=== PATIENT | male | born 1965 | race African-American/Black ===

== ENCOUNTER 2018-10-04 14:55 | Inpatient (IN) | payer MEDICARE, OTHER ==
[~2018-10-04] VITALS: Ht 182.9 cm; Wt 127.0 kg
[2018-10-04] MEDS ORDERED: PANTOPRAZOLE IV 80 MG in SOD CHLORIDE 0.9% 100 ML IV STA (15:48)
[2018-10-04] MEDS ORDERED: SOD CHLORIDE 0.9% 1,000 ML IV STA (15:48)
[2018-10-04] MEDS ORDERED: PANTOPRAZOLE IV 80 MG in SOD CHLORIDE 0.9% 100 ML IVPB STA (15:48)
--- NOTE | 2018-10-04 16:03 | ERD ---
ER Documentation Chief Complaint Chief Complaint Abd, nausea and black stool x 3 days HPI This is a 53-year-old male who is here for epigastric burning pain over the past 3 days. He says that today he started having black diarrhea so I called his primary care who told him to go to the ER. The patient denies any history of ulcer disease, gastritis or esophagitis. His gallbladder is removed. The pain does not radiate but stays mostly in the upper abdomen. No pain in the back. No chest pain or difficulty breathing. ROS All systems reviewed and are negative except as per history of present illness. Medications Home Meds Reported Medications Lisinopril* (Lisinopril*) 40 Mg Tablet, 40 MG PO DAILY, #30 TAB 10/04/18 Tamsulosin Hcl* (Flomax*) 0.4 Mg Cap.er.24h, 0.4 MG PO DAILY, CAP 10/04/18 Hydralazine Hcl* (Hydralazine Hcl*) 50 Mg Tab, 50 MG PO TID, #90 TAB 10/04/18 Allergies Allergies: Coded Allergies: ketorolac (Verified Allergy, Mild, 10/04/18) tramadol (Verified Allergy, Mild, 10/04/18) FmHx Family History: No coronary disease Physical Exam Vitals Vital Signs Date Temp Pulse Resp B/P (MAP) Pulse Ox O2 O2 Flow FiO2 Time Delivery Rate 10/04/18 66 170/106 18:08 (127) 10/04/18 75 19 187/108 98 Room Air 17:51 (134) 10/04/18 98.2 72 19 204/111 97 14:58 (142) Physical Exam Const: Well-developed, well-nourished Head: Atraumatic, normocephalic Eyes: Normal Conjunctiva, PERRLA, EOMI, normal sclera, no nystagmus ENT: Normal External Ears, Nose and Mouth, moist mucus membranes. Neck: Full range of motion. No meningismus, no lymphadenopathy. Resp: Clear to auscultation bilaterally, no wheezing, rhonchi, rales Cardio: Regular rate and rhythm, no murmurs, S1 S2 present Abd: Soft, moderate epigastric tenderness, non distended. Normal bowel sounds, no guarding or rebound, no pulsitile abdominal masses or bruits Skin: No petechiae or rashes, no ecchymosis , no maculopapular rash Back: No midline or flank tenderness Ext: No cyanosis, or edema, FROM x 4, normal inspection, neurovascularly intact x 4 Neur: Awake and alert, STR 5/5 x 4, sensation intact x 4, no focal findings, cerebellum intact Psych: Normal Mood and Affect Result Diagram: 10/04/18 1540 10/04/18 1540 Results 24 hrs Laboratory Tests Test 10/04/18 15:40 White Blood Count 6.5 10^3/ul Red Blood Count 4.28 10^6/ul Hemoglobin 11.1 g/dl Hematocrit 34.5 % Mean Corpuscular Volume 80.6 fl Mean Corpuscular Hemoglobin 25.9 pg Mean Corpuscular Hemoglobin Concent 32.2 g/dl Red Cell Distribution Width 15.4 % Platelet Count 155 10^3/UL Mean Platelet Volume 11.8 fl Immature Granulocytes % 0.500 % Neutrophils % 67.7 % Lymphocytes % 20.5 % Monocytes % 8.2 % Eosinophils % 2.8 % Basophils % 0.3 % Nucleated Red Blood Cells % 0.0 /100WBC Immature Granulocytes # 0.030 10^3/ul Neutrophils # 4.4 10^3/ul Lymphocytes # 1.3 10^3/ul Monocytes # 0.5 10^3/ul Eosinophils # 0.2 10^3/ul Basophils # 0.0 10^3/ul Nucleated Red Blood Cells # 0.0 10^3/ul Prothrombin Time 12.3 Sec Prothrombin Time Ratio 1.0 INR International Normalized Ratio 0.90 Activated Partial Thromboplast Time 27.5 Sec Sodium Level 143 mmol/L Potassium Level 4.1 mmol/L Chloride Level 112 mmol/L Carbon Dioxide Level 25 mmol/L Anion Gap 6 Blood Urea Nitrogen 18 mg/dl Creatinine 2.27 mg/dl Est Glomerular Filtrat Rate mL/min 37 mL/min Glucose Level 88 mg/dl Calcium Level 9.1 mg/dl Total Bilirubin 0.2 mg/dl Direct Bilirubin 0.00 mg/dl Indirect Bilirubin 0.2 mg/dl Aspartate Amino Transf (AST/SGOT) 22 IU/L Alanine Aminotransferase (ALT/SGPT) 13 IU/L Alkaline Phosphatase 108 IU/L Total Protein 7.6 g/dl Albumin 3.8 g/dl Globulin 3.80 g/dl Albumin/Globulin Ratio 1.00 Current Medications Medications Dose Sig/Leatha Start Time Status Last (Trade) Ordered Route PRN Stop Time Admin Dose Reason Admin Sodium 1,000 ml @ Q1H STAT 10/04/18 DC 10/04/18 Chloride 1,000 mls/hr IV 15:48 16:17 10/04/18 16:47 Pantoprazole 100 ml @ ONCE STAT 10/04/18 DC 10/04/18 80 mg/Sodium 400 mls/hr IVPB 15:48 16:18 Chloride 10/04/18 16:02 Pantoprazole 100 ml @ ONCE STAT 10/04/18 10/04/18 80 mg/Sodium 10 mls/hr IV 15:48 16:40 Chloride 10/05/18 01:47 1 mg ONCE STAT 10/04/18 DC 10/04/18 Hydromorphone IV 16:23 16:29 HCl 10/04/18 16:24 (Dilaudid) Ondansetron 4 mg ONCE STAT 10/04/18 DC 10/04/18 HCl (Zofran IV 16:23 16:29 Inj) 10/04/18 16:24 1 mg ONCE STAT 10/04/18 DC 10/04/18 Hydromorphone IV 17:53 18:00 HCl 10/04/18 17:54 (Dilaudid) Ondansetron 4 mg ONCE STAT 10/04/18 DC 10/04/18 HCl (Zofran IV 17:53 17:59 Inj) 10/04/18 17:54 Procedures/MDM The patient's hemoglobin is stable at 11.1. Does have an elevated creatinine of 2.27 we do not know his baseline. Patient is having some significant epigastric pain with multiple rounds of black diarrhea. I will consult GI for endoscopy and colonoscopy. Will admit to the hospital. He is on Protonix IV bolus and drip Departure Diagnosis: Primary Impression: Upper GI bleed Condition: Stable SHANNAN TRENT DO Oct 04, 2018 16:03
[2018-10-04] MEDS ORDERED: TAMS-14 PO (16:19)
[2018-10-04] MEDS ORDERED: HYDR-3672 PO (16:19)
[2018-10-04] MEDS ORDERED: LISI40TA3 PO (16:20)
[2018-10-04] MEDS ORDERED: ONDANSETRON 4 MG INJ IV STA ×2 (16:23→17:53)
[2018-10-04] MEDS ORDERED: HYDROmorphONE 1 MG/ML SYG IV STA ×2 (16:23→17:53)
[2018-10-04] MEDS ORDERED: SOD CHLORIDE 0.9% 1,000 ML IV SCH (19:44)
[2018-10-04] MEDS ORDERED: ACETAMINOPHEN 325 MG TAB PO PRN ×2 (20:00)
[2018-10-04] MEDS ORDERED: NACL 0.9% 3 ML SYG IV SCH (20:00)
[2018-10-04] MEDS ORDERED: morphine 2 MG INJ IV PRN (20:00)
[2018-10-04] MEDS ORDERED: ONDANSETRON 4 MG INJ IV PRN ×2 (20:00)
[2018-10-04] MEDS ORDERED: METOCLOPRAMIDE 10 MG INJ IV PRN (20:00)
--- NOTE | 2018-10-04 20:02 | HP ---
Date/Time of Note Date/Time of Note DATE: 10/04/18 TIME: 20:02 Assessment/Plan VTE Prophylaxis SCD applied (from Nsg): Yes Pharmacological prophylaxis: NA/contraindicated Pharm contraindication: low risk/ambulating Lines/Catheters IV Catheter Type (from Nrsg): Saline Lock Assessment/Plan Hospital Course This is a 53-year-old male being admitted to the [facility] floor for: #1 GI bleed: Suspect upper GI bleed given patient's epigastric pain. Likely peptic ulcer disease. Will obtain a stool occult blood. Will check CBC every 6 hours. Protonix drip. We will keep the patient n.p.o. except meds at the current time. IV fluid hydration with normal saline. Dilaudid for pain. GI has been consulted #2 acute kidney injury: Unknown previous baseline creatinine. This likely could be secondary to hemodynamics, hypertension, NETTA inhibitor effect. At the current time will hold NETTA inhibitor. Will obtain a renal ultrasound. Will avoid any nephrotoxic agents or any NSAIDs. Will consult nephrology Dr. Alcazar Microscopic UA, urinalysis #3 obesity: We will check a hemoglobin A1c, lipid panel, TSH, encourage diet and lifestyle modification #4 normocytic anemia: We will check iron stores, please see #1. #5 DVT GI prophylaxis: SCDs, Protonix IV Further treatment strategy will be implemented as per the clinical course Result Diagram: 10/04/18 1540 10/04/18 1540 Results 24hrs Laboratory Tests Test 10/04/18 15:40 White Blood Count 6.5 Red Blood Count 4.28 L Hemoglobin 11.1 L Hematocrit 34.5 L Mean Corpuscular Volume 80.6 L Mean Corpuscular Hemoglobin 25.9 L Mean Corpuscular Hemoglobin Concent 32.2 Red Cell Distribution Width 15.4 H Platelet Count 155 Mean Platelet Volume 11.8 H Immature Granulocytes % 0.500 H Neutrophils % 67.7 Lymphocytes % 20.5 Monocytes % 8.2 Eosinophils % 2.8 Basophils % 0.3 Nucleated Red Blood Cells % 0.0 Immature Granulocytes # 0.030 Neutrophils # 4.4 Lymphocytes # 1.3 Monocytes # 0.5 Eosinophils # 0.2 Basophils # 0.0 Nucleated Red Blood Cells # 0.0 Prothrombin Time 12.3 Prothrombin Time Ratio 1.0 INR International Normalized Ratio 0.90 Activated Partial Thromboplast Time 27.5 Sodium Level 143 Potassium Level 4.1 Chloride Level 112 H Carbon Dioxide Level 25 Anion Gap 6 Blood Urea Nitrogen 18 Creatinine 2.27 H Est Glomerular Filtrat Rate mL/min 37 L Glucose Level 88 Calcium Level 9.1 Total Bilirubin 0.2 Direct Bilirubin 0.00 Indirect Bilirubin 0.2 Aspartate Amino Transf (AST/SGOT) 22 Alanine Aminotransferase (ALT/SGPT) 13 Alkaline Phosphatase 108 Total Protein 7.6 Albumin 3.8 Globulin 3.80 H Albumin/Globulin Ratio 1.00 HPI/ROS Admit Date/Time Admit Date/Time Hx of Present Illness Chief complaint: Epigastric pain, dark stools This is a 53-year-old male who is here for epigastric burning pain over the past 3 days. He says that today he started having black diarrhea so I called his primary care who told him to go to the ER. The patient denies any history of ulcer disease, gastritis or esophagitis. His gallbladder is removed. The pain does not radiate but stays mostly in the upper abdomen. He reports that he has had approximately 5 dark bowel today. He denies any chest pain or shortness of breath. Allergies:Tramadol, Toradol Medications: See AUG ROS Const: As per HPI Eyes : No pain discharge or redness or change in visual acuity ENT: No pain, sore throat, congestion, congestion, dysphagia or discharge Respiratory: No shortness of breath, cough, sputum, wheezing, or pleuritic pain Cardiovascular: No chest pain, palpitation, PND, or edema GI : As per HPI Genitourinary: No dysuria, hematuria, flank pain , discharge or CVA tenderness Musculoskeletal: No joint pain, back pain, neck pain, restricted range of motion in neck or joints Skin: No rash, bruising or hives Neuro: No headache, dizziness, syncope, seizure, focal weakness Endocrine: No polyuria, polydipsia, temperature intolerance Psych: No hallucination, depression, anxiety or suicidal ideation PMH/Family/Social Past Medical History Hypertension, BPH Medications Current Medications Pantoprazole 80 mg/Sodium Chloride 100 ml @ 10 mls/hr ONCE STAT IV Last administered on 10/04/18at 16:40; Admin Dose 10 MLS/HR; Start 10/04/18 at 15:48; Stop 10/05/18 at 01:47 Sodium Chloride 1,000 ml @ 80 mls/hr [id number] IV ; Start 10/04/18 at 19:44; Stop 10/05/18 at 08:13 Ondansetron HCl (Zofran Inj) 4 mg BRIDGE ORDER PRN IV NAUSEA/VOMITING; Start 10/04/18 at 20:00; Stop 10/05/18 at 19:59 Acetaminophen (Tylenol Tab) 650 mg ER BRIDGE PRN PO .MILD PAIN 1-3 OR TEMP; Start 10/04/18 at 20:00; Stop 10/05/18 at 19:59 Coded Allergies: ketorolac (Verified Allergy, Mild, 10/04/18) tramadol (Verified Allergy, Mild, 10/04/18) Past Surgical History TURP, cholecystectomy Family History Significant Family History: no pertinent family hx Social History Alcohol Use: none Smoking Status: Never smoker Drug Use: none Exam/Review of Systems Vital Signs Vitals Vital Signs Date Temp Pulse Resp B/P (MAP) Pulse Ox O2 O2 Flow FiO2 Time Delivery Rate 10/04/18 66 170/106 18:08 (127) 10/04/18 98 Room Air 17:51 10/04/18 98.2 14:58 Exam Exam General: Patient is a pleasant male currently lying in bed in no acute distress HEENT: Atraumatic, normocephalic. The pupils are equal, round and reactive. Extraocular motor are intact Neck: Supple with full range of motion. No rigidity or meningismus Chest: Nontender Lungs: Clear to auscultation bilaterally no crackles rales or wheezing Heart: Normal S1-S2, Regular rhythm and rate. No murmur, S3, or S4 Abdomen: Obese, soft , epigastric tenderness to palpation, nondistended , bowel sounds are present. No guarding no rebound tenderness , No masses or organomeg janelle. No costovertebral temporal angle mass Extremities: Normal to inspection, no edema no cyanosis Neurologic: Normal mental status, speech normal, cranial nerves II through XII are intact, motor and sensory are intact, no focal weakness Additional Comments PROCEDURE: XR Chest. CLINICAL INDICATION: Chest pain TECHNIQUE: Single portable view of the chest was obtained COMPARISON: None FINDINGS: The heart is enlarged. The lungs are clear. There is no pleural effusion or pneumothorax. RPTAT: AA IMPRESSION: Mild Cardiomegaly. .Carlos Dover MD, MD Date Time Electronically viewed and signed by .Carlos Dover MD, MD on 10/04/2018 20:52 .S/ CC: SANDY COLLAZO [phone] SANDY COLLAZO Oct 04, 2018 20:02
[2018-10-04] MEDS: SOD CHLORIDE 0.9% 1,000 ML IV SCH (20:27)
[2018-10-04] MEDS ORDERED: hydrALAzine 20 MG INJ ONE (20:48)
[2018-10-04] MEDS ORDERED: hydrALAzine 20 MG INJ IV ONE (21:00)
[2018-10-04] MEDS ORDERED: LISINOPRIL 20 MG TAB PO SCH (21:00)
[2018-10-04 21:32] VITALS: Ht 182.9 cm; Wt 127.0 kg
[2018-10-04 21:50] VITALS: BP 182/95; PULSE 72; RESP 18
[2018-10-04] MEDS: AMLODIPINE 5 MG TAB PO SCH (23:09)
[2018-10-04] MEDS: HYDROmorphONE 1 MG/ML SYG IV PRN (23:11)
[2018-10-05] VITALS (21 sets, daily range): BP systolic 164–203; BP diastolic 85–105; PULSE 60–92; RESP 12–39
[2018-10-05] MEDS: PANTOPRAZOLE IV 80 MG in SOD CHLORIDE 0.9% 100 ML IV SCH ×2 (03:12→13:07)
[2018-10-05] MEDS: HYDROmorphONE 1 MG/ML SYG IV PRN ×5 (03:13→22:06)
[2018-10-05] MEDS: SOD CHLORIDE 0.9% 1,000 ML IV SCH ×2 (09:24→22:39)
[2018-10-05] MEDS: AMLODIPINE 5 MG TAB PO SCH (09:24)
[2018-10-05] MEDS: hydrALAzine 20 MG INJ IV PRN ×2 (12:17→17:51)
--- NOTE | 2018-10-05 13:21 | PN ---
Date/Time of Note Date/Time of Note DATE: 10/05/18 TIME: 13:19 Assessment/Plan VTE Prophylaxis Risk score (from Ns)>0 risk: 2 SCD applied (from Ns): Yes Pharmacological prophylaxis: NA/contraindicated Pharm contraindication: bleeding Lines/Catheters IV C[facility]ter Type (from [facility]): Peripheral IV Urinary Cath still in place: No Assessment/Plan Hospital Course SUBJECTIVE: According to nursing staff, patient was found screaming, staring at the roof,with elevated blood pressure. OBJECTIVE: Vital signs-see below PHYSICAL EXAM: Constitutional: Well-developed, well-nourished not in acute distress. HEENT: Head atraumatic and normocephalic. Eyes: Extraocular muscles intact. Anicteric sclerae. Pupils equal bilaterally, reactive to light. NECK: Supple without lymph node. CHEST: Clear and good breath sounds equally. No wheezing. No rhonchi. HEART: S1, S2. Regular rate and rhythm. ABDOMEN: mild tenderness epigastric area. Soft with no rebound tenderness. Bowel sounds were present. EXTREMITIES: Full range of motion in all the extremities. No cyanosis, clubbing or edema. NEUROLOGIC: Alert and oriented x3. No focal deficit. No sensory deficit. PSYCHOSOCIAL: slow response, lack of interest in conversing. INTEGUMENTARY: Moist mucous membranes. Good skin turgor, intact. ASSESSMENT AND PLAN: 53-year-old male with a history of chronic kidney disease, questionable epilepsy disorders in childhood, hypertension, admitted with 4-day duration of lower abdominal pain and black stool. 1. Abdominal pain/melena, rule out upper GI bleed. -GI consultation has been requested and we will follow-up recommendations. -For now, continue with PPI 2. Microcytic anemia, likely secondary to #1. -Stable H&H, not requiring blood transfusion at the moment. Stable iron panel. -Continue monitoring. 3. Transient loss of awareness/behavior disruption, Questionable seizure disorder/epilepsy vs Psych disorders -Patient was found with screaming/staring at the roof. Patient does not remember any of this. At this time, I recommend obtaining a brain CT, EEG and a neurology consultation. -Seizure precautions, neuro checks -Drug toxicology 4. Hypertension, poorly controlled -Continue lisinopril, hydralazine. Add amlodipine for better control. 5. Acute kidney injury vs CKD. -Baseline creatinine unknown. -Follow-up nephrology recommendations. -Monitor renal function closely. 6. Obesity with BMI 38.0 -Weight reduction advised DVT prophylaxis: SCDs PUD prophylaxis: PPI Disposition: Continue current management. Follow-up consultants recommendations. Patient was seen in collaboration with Dr. Anderson. Result Diagram: 10/05/18 1119 10/04/18 1540 Results 24hrs Laboratory Tests Test 10/04/18 15:40 10/04/18 23:05 10/04/18 23:11 10/05/18 05:12 White Blood Count 6.5 6.5 5.1 # Red Blood Count 4.28 L 4.13 L 4.17 L Hemoglobin 11.1 L 10.8 L 10.9 L Hematocrit 34.5 L 33.1 L 33.5 L Mean Corpuscular 80.6 L 80.1 L 80.3 L Volume Mean Corpuscular 25.9 L 26.2 L 26.1 L Hemoglobin Mean Corpuscular 32.2 32.6 32.5 Hemoglobin Concent Red Cell 15.4 H 15.3 H 15.1 H Distribution Width Platelet Count 155 164 163 Mean Platelet Volume 11.8 H 11.2 H 10.4 Immature 0.500 H 0.500 H 0.400 Granulocytes % Neutrophils % 67.7 67.1 67.0 Lymphocytes % 20.5 21.1 20.3 Monocytes % 8.2 7.8 8.8 Eosinophils % 2.8 3.2 3.3 Basophils % 0.3 0.3 0.2 Nucleated Red Blood 0.0 0.0 0.0 Cells % Immature 0.030 0.030 0.020 Granulocytes # Neutrophils # 4.4 4.4 3.4 Lymphocytes # 1.3 1.4 1.0 Monocytes # 0.5 0.5 0.5 Eosinophils # 0.2 0.2 0.2 Basophils # 0.0 0.0 0.0 Nucleated Red Blood 0.0 0.0 0.0 Cells # Prothrombin Time 12.3 Prothrombin Time 1.0 Ratio INR International 0.90 Normalized Ratio Activated 27.5 Partial Thromboplast Time Sodium Level 143 Potassium Level 4.1 Chloride Level 112 H Carbon Dioxide Level 25 Anion Gap 6 Blood Urea Nitrogen 18 Creatinine 2.27 H Est Glomerular 37 L Filtrat Rate mL/min Glucose Level 88 Calcium Level 9.1 Total Bilirubin 0.2 Direct Bilirubin 0.00 Indirect Bilirubin 0.2 Aspartate Amino 22 Transf (AST/SGOT) Alanine 13 Aminotransferase (AL T/SGPT) Alkaline Phosphatase 108 Total Protein 7.6 Albumin 3.8 Globulin 3.80 H Albumin/Globulin 1.00 Ratio Urine Color STRAW Urine Clarity CLEAR Urine pH 5.0 Urine Specific 1.009 [place] Urine Ketones NEGATIVE Urine Nitrite NEGATIVE Urine Bilirubin NEGATIVE Urine Urobilinogen NEGATIVE Urine Leukocyte NEGATIVE Esterase Urine Microscopic 1 RBC Urine Microscopic 0 WBC Urine Hemoglobin NEGATIVE Urine Glucose NEGATIVE Urine Total Protein 3+ H Hemoglobin A1c 5.0 Magnesium Level 1.9 Iron Level 88 Total Iron Binding 260 Capacity Percent Iron 34 Saturation Ferritin 24.4 Triglycerides Level 103 Cholesterol Level 146 LDL Cholesterol, 93 Calculated HDL Cholesterol 32 Cholesterol/HDL 4.5 Ratio Thyroid Stimulating 0.927 Hormone (TSH) Test 10/05/18 11:19 10/05/18 12:48 White Blood Count 5.1 Red Blood Count 4.24 L Hemoglobin 11.0 L Hematocrit 34.0 L Mean Corpuscular 80.2 L Volume Mean Corpuscular 25.9 L Hemoglobin Mean Corpuscular 32.4 Hemoglobin Concent Red Cell 15.4 H Distribution Width Platelet Count 174 Mean Platelet Volume 10.3 Immature 0.200 Granulocytes % Neutrophils % 70.4 Lymphocytes % 18.5 Monocytes % 7.3 Eosinophils % 3.2 Basophils % 0.4 Nucleated Red Blood 0.0 Cells % Immature 0.010 Granulocytes # Neutrophils # 3.6 Lymphocytes # 0.9 Monocytes # 0.4 Eosinophils # 0.2 Basophils # 0.0 Nucleated Red Blood 0.0 Cells # Bedside Glucose 85 Exam/Review of Systems Exam Vitals Vital Signs Date Temp Pulse Resp B/P (MAP) Pulse Ox O2 O2 Flow FiO2 Time Delivery Rate 10/05/18 66 18 184/100 98 12:13 (128) 10/05/18 98.2 07:45 10/04/18 Room Air 21:10 Intake and Output 10/04/18 10/04/18 10/05/18 1515:00 23:00 07:00 IntakeIntake Total 795 ml OutputOutput Total 1800 ml BalanceBalance -1005 ml Results Results 24hrs Laboratory Tests Test 10/04/18 15:40 10/04/18 23:05 10/04/18 23:11 10/05/18 05:12 White Blood Count 6.5 6.5 5.1 # Red Blood Count 4.28 L 4.13 L 4.17 L Hemoglobin 11.1 L 10.8 L 10.9 L Hematocrit 34.5 L 33.1 L 33.5 L Mean Corpuscular 80.6 L 80.1 L 80.3 L Volume Mean Corpuscular 25.9 L 26.2 L 26.1 L Hemoglobin Mean Corpuscular 32.2 32.6 32.5 Hemoglobin Concent Red Cell 15.4 H 15.3 H 15.1 H Distribution Width Platelet Count 155 164 163 Mean Platelet Volume 11.8 H 11.2 H 10.4 Immature 0.500 H 0.500 H 0.400 Granulocytes % Neutrophils % 67.7 67.1 67.0 Lymphocytes % 20.5 21.1 20.3 Monocytes % 8.2 7.8 8.8 Eosinophils % 2.8 3.2 3.3 Basophils % 0.3 0.3 0.2 Nucleated Red Blood 0.0 0.0 0.0 Cells % Immature 0.030 0.030 0.020 Granulocytes # Neutrophils # 4.4 4.4 3.4 Lymphocytes # 1.3 1.4 1.0 Monocytes # 0.5 0.5 0.5 Eosinophils # 0.2 0.2 0.2 Basophils # 0.0 0.0 0.0 Nucleated Red Blood 0.0 0.0 0.0 Cells # Prothrombin Time 12.3 Prothrombin Time 1.0 Ratio INR International 0.90 Normalized Ratio Activated 27.5 Partial Thromboplast Time Sodium Level 143 Potassium Level 4.1 Chloride Level 112 H Carbon Dioxide Level 25 Anion Gap 6 Blood Urea Nitrogen 18 Creatinine 2.27 H Est Glomerular 37 L Filtrat Rate mL/min Glucose Level 88 Calcium Level 9.1 Total Bilirubin 0.2 Direct Bilirubin 0.00 Indirect Bilirubin 0.2 Aspartate Amino 22 Transf (AST/SGOT) Alanine 13 Aminotransferase (AL T/SGPT) Alkaline Phosphatase 108 Total Protein 7.6 Albumin 3.8 Globulin 3.80 H Albumin/Globulin 1.00 Ratio Urine Color STRAW Urine Clarity CLEAR Urine pH 5.0 Urine Specific 1.009 [place] Urine Ketones NEGATIVE Urine Nitrite NEGATIVE Urine Bilirubin NEGATIVE Urine Urobilinogen NEGATIVE Urine Leukocyte NEGATIVE Esterase Urine Microscopic 1 RBC Urine Microscopic 0 WBC Urine Hemoglobin NEGATIVE Urine Glucose NEGATIVE Urine Total Protein 3+ H Hemoglobin A1c 5.0 Magnesium Level 1.9 Iron Level 88 Total Iron Binding 260 Capacity Percent Iron 34 Saturation Ferritin 24.4 Triglycerides Level 103 Cholesterol Level 146 LDL Cholesterol, 93 Calculated HDL Cholesterol 32 Cholesterol/HDL 4.5 Ratio Thyroid Stimulating 0.927 Hormone (TSH) Test 10/05/18 11:19 10/05/18 12:48 White Blood Count 5.1 Red Blood Count 4.24 L Hemoglobin 11.0 L Hematocrit 34.0 L Mean Corpuscular 80.2 L Volume Mean Corpuscular 25.9 L Hemoglobin Mean Corpuscular 32.4 Hemoglobin Concent Red Cell 15.4 H Distribution Width Platelet Count 174 Mean Platelet Volume 10.3 Immature 0.200 Granulocytes % Neutrophils % 70.4 Lymphocytes % 18.5 Monocytes % 7.3 Eosinophils % 3.2 Basophils % 0.4 Nucleated Red Blood 0.0 Cells % Immature 0.010 Granulocytes # Neutrophils # 3.6 Lymphocytes # 0.9 Monocytes # 0.4 Eosinophils # 0.2 Basophils # 0.0 Nucleated Red Blood 0.0 Cells # Bedside Glucose 85 Medications Medication Current Medications Sodium Chloride 1,000 ml @ 75 mls/hr [id number] IV Last administered on 10/05/18at 09:24; Admin Dose 75 MLS/HR; Start 10/04/18 at 19:59 IV Flush (NS 3 ml) 3 ml PER PROTOCOL IV ; Start 10/04/18 at 20:00 Ondansetron HCl (Zofran Inj) 4 mg Q6H PRN IV NAUSEA/VOMITING; Start 10/04/18 at 20:00 Metoclopramide HCl (Reglan) 5 mg Q6H PRN IV NAUSEA/VOMITING; Start 10/04/18 at 20:00 Acetaminophen (Tylenol Tab) 650 mg Q6H PRN PO .PAIN 1-3 OR TEMP; Start 10/04/18 at 20:00 Hydralazine HCl (Apresoline) 50 mg TID PO Last administered on 10/05/18at 13:07; Admin Dose 50 MG; Start 10/05/18 at 08:00 Amlodipine Besylate (Norvasc) 5 mg DAILY PO Last administered on 10/05/18at 09:24; Admin Dose 5 MG; Start 10/04/18 at 21:00 Hydralazine HCl (Apresoline) 10 mg Q4H PRN IV ELEVATED BLOOD PRESSURE Last administered on 10/05/18 12:17; Admin Dose 10 MG; Start 10/05/18 at 00:00 Hydromorphone HCl (Dilaudid) 1 mg Q4H PRN IV SEVERE PAIN LEVEL 7-10 Last administered on 10/05/18 09:23; Admin Dose 1 MG; Start 10/04/18 at 23:00 Pantoprazole 80 mg/Sodium Chloride 100 ml @ 10 mls/hr Q10H IV Last administered on 10/05/18 13:07; Admin Dose 10 MLS/HR; Start 10/05/18 at 03:00 SHAR LINDSEY NP Oct 05, 2018 13:20
[2018-10-05] MEDS ORDERED: AMLODIPINE 2.5 MG TAB PO SCH (13:30)
--- NOTE | 2018-10-05 14:01 | CONS ---
Assessment/Plan Assessment/Plan Assessment/Plan (Daily) Assessment: Melena Epigastric pain Mild anemia Hypertension Obesity BPH Plan: EGD today Continue Protonix drip Keep n.p.o. Patient seen in collaboration with Dr. Sorenson Consultation Date/Type/Reason Admit Date/Time Date of Consultation: Oct 05, 2018 Type of Consult GI Reason for Consultation This is a 53-year-old male with a history of hypertension and BPH who was admitted for melena and epigastric pain. Patient states he has epigastric pain and nausea started 4 days ago. He denies use of NSAIDs or aspirin, denies drinking alcohol, smoking or use of illicit drugs. Patient denies any history of EGD or peptic ulcer disease. Patient had a colonoscopy 1 year agonormal exam. Patient reports having diarrhea yesterday with melena. Currently patient denies vomiting, hematemesis, hematochezia, constipation or fever. Hemoglobin is stable. Patient was started on Protonix drip. The plan is to perform an EGD today to rule out peptic ulcers. Risks and benefits of the procedure have been discussed with the patient. Patient is agreeable to the procedure. Date/Time of Note DATE: 10/05/18 TIME: 13:42 Gastrointestinal: no complaints (See HPI) Past Medical History Hypertension, BPH Home Meds Reported Medications Lisinopril* (Lisinopril*) 40 Mg Tablet, 40 MG PO DAILY, #30 TAB 10/04/18 Tamsulosin Hcl* (Flomax*) 0.4 Mg Cap.er.24h, 0.4 MG PO DAILY, CAP 10/04/18 Hydralazine Hcl* (Hydralazine Hcl*) 50 Mg Tab, 50 MG PO TID, #90 TAB 10/04/18 Medications Current Medications Sodium Chloride 1,000 ml @ 75 mls/hr [id number] IV Last administered on 10/05/18at 09:24; Admin Dose 75 MLS/HR; Start 10/04/18 at 19:59 IV Flush (NS 3 ml) 3 ml PER PROTOCOL IV ; Start 10/04/18 at 20:00 Ondansetron HCl (Zofran Inj) 4 mg Q6H PRN IV NAUSEA/VOMITING; Start 10/04/18 at 20:00 Metoclopramide HCl (Reglan) 5 mg Q6H PRN IV NAUSEA/VOMITING; Start 10/04/18 at 20:00 Acetaminophen (Tylenol Tab) 650 mg Q6H PRN PO .PAIN 1-3 OR TEMP; Start 10/04/18 at 20:00 Hydralazine HCl (Apresoline) 50 mg TID PO Last administered on 10/05/18at 13:07; Admin Dose 50 MG; Start 10/05/18 at 08:00 Amlodipine Besylate (Norvasc) 5 mg DAILY PO Last administered on 10/05/18at 09:24; Admin Dose 5 MG; Start 10/04/18 at 21:00 Hydralazine HCl (Apresoline) 10 mg Q4H PRN IV ELEVATED BLOOD PRESSURE Last administered on 10/05/18at 12:17; Admin Dose 10 MG; Start 10/05/18 at 00:00 Hydromorphone HCl (Dilaudid) 1 mg Q4H PRN IV SEVERE PAIN LEVEL 7-10 Last administered on 10/05/18at 09:23; Admin Dose 1 MG; Start 10/04/18 at 23:00 Pantoprazole 80 mg/Sodium Chloride 100 ml @ 10 mls/hr Q10H IV Last administered on 10/05/18at 13:07; Admin Dose 10 MLS/HR; Start 10/05/18 at 03:00 Tamsulosin HCl (Flomax) 0.4 mg QHS PO ; Start 10/05/18 at 21:00 Allergies: Coded Allergies: ketorolac (Verified Allergy, Mild, 10/04/18) tramadol (Verified Allergy, Mild, 10/04/18) Social History Alcohol Use: none Smoking Status: Never smoker Drug Use: none Exam/Review of Systems Exam Vitals Vital Signs Date Temp Pulse Resp B/P (MAP) Pulse Ox O2 O2 Flow FiO2 Time Delivery Rate 10/05/18 85 18 190/95 100 13:07 (126) 10/05/18 98.2 07:45 10/04/18 Room Air 21:10 Intake and Output 10/04/18 10/04/18 10/05/18 1414:59 22:59 06:59 IntakeIntake Total 795 ml OutputOutput Total 1800 ml BalanceBalance -1005 ml Exam PHYSICAL EXAMINATION: GENERAL: Well developed, obese, well nourished, alert & oriented x 3, in no acute distress SKIN: No lesions, no stigmata chronic liver disease, no evidence of bleeding diathesis LYMPHATIC: No palpable lymphadenopathy. HEAD: Normocephalic, atraumatic, no tenderness. EYES: Pupils equal reactive to light and accommodation, full extraocular movements, sclera clear, non-icteric, no discharge. EARS/NOSE AND THROAT: Ears normal, nose normal, oropharynx normal, oral membranes well hydrated without lesions. NECK: Supple, no masses, thyroid normal, JVP within normal limits, carotids normal without bruits. CHEST: Inspection within normal limits. CARDIOVASCULAR: Heart: Regular rate and rhythm, no murmurs, gallops or rubs. Peripheral pulses present within normal limits, no cyanosis, clubbing or edemas. No pulsatile abdominal mass RESPIRATORY: Lungs clear to auscultation and percussion, no wheezing, no rubs GASTROINTESTINAL AND LIVER: Abdomen: Soft, obese, epigastric tenderness, non- distended, no hernias, no masses, no organomegaly, no ascites, no guarding, no rebound tenderness, normoactive bowel sounds. Rectal: Deferred. GENITOURINARY: Male genitalia within normal limits. EXTREMITIES: No cyanosis, clubbing or edema. Results Result Diagram: 10/05/18 1119 10/04/18 1540 Results 24hrs Laboratory Tests Test 10/04/18 15:40 10/04/18 23:05 10/04/18 23:11 10/05/18 05:12 White Blood Count 6.5 6.5 5.1 # Red Blood Count 4.28 L 4.13 L 4.17 L Hemoglobin 11.1 L 10.8 L 10.9 L Hematocrit 34.5 L 33.1 L 33.5 L Mean Corpuscular 80.6 L 80.1 L 80.3 L Volume Mean Corpuscular 25.9 L 26.2 L 26.1 L Hemoglobin Mean Corpuscular 32.2 32.6 32.5 Hemoglobin Concent Red Cell 15.4 H 15.3 H 15.1 H Distribution Width Platelet Count 155 164 163 Mean Platelet Volume 11.8 H 11.2 H 10.4 Immature 0.500 H 0.500 H 0.400 Granulocytes % Neutrophils % 67.7 67.1 67.0 Lymphocytes % 20.5 21.1 20.3 Monocytes % 8.2 7.8 8.8 Eosinophils % 2.8 3.2 3.3 Basophils % 0.3 0.3 0.2 Nucleated Red Blood 0.0 0.0 0.0 Cells % Immature 0.030 0.030 0.020 Granulocytes # Neutrophils # 4.4 4.4 3.4 Lymphocytes # 1.3 1.4 1.0 Monocytes # 0.5 0.5 0.5 Eosinophils # 0.2 0.2 0.2 Basophils # 0.0 0.0 0.0 Nucleated Red Blood 0.0 0.0 0.0 Cells # Prothrombin Time 12.3 Prothrombin Time 1.0 Ratio INR International 0.90 Normalized Ratio Activated 27.5 Partial Thromboplast Time Sodium Level 143 Potassium Level 4.1 Chloride Level 112 H Carbon Dioxide Level 25 Anion Gap 6 Blood Urea Nitrogen 18 Creatinine 2.27 H Est Glomerular 37 L Filtrat Rate mL/min Glucose Level 88 Calcium Level 9.1 Total Bilirubin 0.2 Direct Bilirubin 0.00 Indirect Bilirubin 0.2 Aspartate Amino 22 Transf (AST/SGOT) Alanine 13 Aminotransferase (AL T/SGPT) Alkaline Phosphatase 108 Total Protein 7.6 Albumin 3.8 Globulin 3.80 H Albumin/Globulin 1.00 Ratio Urine Color STRAW Urine Clarity CLEAR Urine pH 5.0 Urine Specific 1.009 [place] Urine Ketones NEGATIVE Urine Nitrite NEGATIVE Urine Bilirubin NEGATIVE Urine Urobilinogen NEGATIVE Urine Leukocyte NEGATIVE Esterase Urine Microscopic 1 RBC Urine Microscopic 0 WBC Urine Hemoglobin NEGATIVE Urine Glucose NEGATIVE Urine Total Protein 3+ H Hemoglobin A1c 5.0 Magnesium Level 1.9 Iron Level 88 Total Iron Binding 260 Capacity Percent Iron 34 Saturation Ferritin 24.4 Triglycerides Level 103 Cholesterol Level 146 LDL Cholesterol, 93 Calculated HDL Cholesterol 32 Cholesterol/HDL 4.5 Ratio Thyroid Stimulating 0.927 Hormone (TSH) Test 10/05/18 11:19 10/05/18 12:48 White Blood Count 5.1 Red Blood Count 4.24 L Hemoglobin 11.0 L Hematocrit 34.0 L Mean Corpuscular 80.2 L Volume Mean Corpuscular 25.9 L Hemoglobin Mean Corpuscular 32.4 Hemoglobin Concent Red Cell 15.4 H Distribution Width Platelet Count 174 Mean Platelet Volume 10.3 Immature 0.200 Granulocytes % Neutrophils % 70.4 Lymphocytes % 18.5 Monocytes % 7.3 Eosinophils % 3.2 Basophils % 0.4 Nucleated Red Blood 0.0 Cells % Immature 0.010 Granulocytes # Neutrophils # 3.6 Lymphocytes # 0.9 Monocytes # 0.4 Eosinophils # 0.2 Basophils # 0.0 Nucleated Red Blood 0.0 Cells # Bedside Glucose 85 Medications Medication Current Medications Sodium Chloride 1,000 ml @ 75 mls/hr [id number] IV Last administered on 10/05/18 09:24; Admin Dose 75 MLS/HR; Start 10/04/18 at 19:59 IV Flush (NS 3 ml) 3 ml PER PROTOCOL IV ; Start 10/04/18 at 20:00 Ondansetron HCl (Zofran Inj) 4 mg Q6H PRN IV NAUSEA/VOMITING; Start 10/04/18 at 20:00 Metoclopramide HCl (Reglan) 5 mg Q6H PRN IV NAUSEA/VOMITING; Start 10/04/18 at 20:00 Acetaminophen (Tylenol Tab) 650 mg Q6H PRN PO .PAIN 1-3 OR TEMP; Start 10/04/18 at 20:00 Hydralazine HCl (Apresoline) 50 mg TID PO Last administered on 10/05/18 13:07; Admin Dose 50 MG; Start 10/05/18 at 08:00 Amlodipine Besylate (Norvasc) 5 mg DAILY PO Last administered on 10/05/18 09:24; Admin Dose 5 MG; Start 10/04/18 at 21:00 Hydralazine HCl (Apresoline) 10 mg Q4H PRN IV ELEVATED BLOOD PRESSURE Last administered on 10/05/18 12:17; Admin Dose 10 MG; Start 10/05/18 at 00:00 Hydromorphone HCl (Dilaudid) 1 mg Q4H PRN IV SEVERE PAIN LEVEL 7-10 Last administered on 10/05/18 09:23; Admin Dose 1 MG; Start 10/04/18 at 23:00 Pantoprazole 80 mg/Sodium Chloride 100 ml @ 10 mls/hr Q10H IV Last adminis tered on 10/05/18 13:07; Admin Dose 10 MLS/HR; Start 10/05/18 at 03:00 Tamsulosin HCl (Flomax) 0.4 mg QHS PO ; Start 10/05/18 at 21:00 MARLON PEREZ NP Oct 05, 2018 13:52
--- NOTE | 2018-10-05 14:05 | CONS ---
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 He was noted to have a transient loss of awareness, for which neurology is consulted. This could be clinically concerning for syncope vs. seizure. CTH is unrevealing. P: Await EEG to evaluate for epileptiform activity Add orthostatics Defer AED therapy for now Cont other medical management per primary Will follow clinically, to recommend neurologic studies, as necessary Consultation Date/Type/Reason Admit Date/Time Type of Consult Neurology Reason for Consultation ? seizure Requesting Provider: SHAR LINDSEY NP Date/Time of Note DATE: 10/05/18 TIME: 14:05 Hx of Present Illness It is elsewhere noted: This is a 53-year-old male who is here for epigastric burning pain over the past 3 days. He says that today he started having black diarrhea so I called his primary care who told him to go to the ER. The patient denies any history of ulcer disease, gastritis or esophagitis. His gallbladder is removed. The pain does not radiate but stays mostly in the upper abdomen. He reports that he has had approximately 5 dark bowel today. He denies any chest pain or shortness of breath. Allergies:Tramadol, Toradol Subjective hx not possible: other Exam/Review of Systems Exam Vitals Vital Signs Date Temp Pulse Resp B/P (MAP) Pulse Ox O2 O2 Flow FiO2 Time Delivery Rate 10/05/18 85 20 193/103 98 13:46 (133) 10/05/18 98.2 07:45 10/04/18 Room Air 21:10 Intake and Output 10/04/18 10/04/18 10/05/18 1515:00 23:00 07:00 IntakeIntake Total 795 ml OutputOutput Total 1800 ml BalanceBalance -1005 ml Exam Unable to assess as pt is off unit for a procedure. Will examine when able. Results Result Diagram: 10/05/18 1119 10/04/18 1540 Results 24hrs Laboratory Tests Test 10/04/18 15:40 10/04/18 23:05 10/04/18 23:11 10/05/18 05:12 White Blood Count 6.5 6.5 5.1 # Red Blood Count 4.28 L 4.13 L 4.17 L Hemoglobin 11.1 L 10.8 L 10.9 L Hematocrit 34.5 L 33.1 L 33.5 L Mean Corpuscular 80.6 L 80.1 L 80.3 L Volume Mean Corpuscular 25.9 L 26.2 L 26.1 L Hemoglobin Mean Corpuscular 32.2 32.6 32.5 Hemoglobin Concent Red Cell 15.4 H 15.3 H 15.1 H Distribution Width Platelet Count 155 164 163 Mean Platelet Volume 11.8 H 11.2 H 10.4 Immature 0.500 H 0.500 H 0.400 Granulocytes % Neutrophils % 67.7 67.1 67.0 Lymphocytes % 20.5 21.1 20.3 Monocytes % 8.2 7.8 8.8 Eosinophils % 2.8 3.2 3.3 Basophils % 0.3 0.3 0.2 Nucleated Red Blood 0.0 0.0 0.0 Cells % Immature 0.030 0.030 0.020 Granulocytes # Neutrophils # 4.4 4.4 3.4 Lymphocytes # 1.3 1.4 1.0 Monocytes # 0.5 0.5 0.5 Eosinophils # 0.2 0.2 0.2 Basophils # 0.0 0.0 0.0 Nucleated Red Blood 0.0 0.0 0.0 Cells # Prothrombin Time 12.3 Prothrombin Time 1.0 Ratio INR International 0.90 Normalized Ratio Activated 27.5 Partial Thromboplast Time Sodium Level 143 Potassium Level 4.1 Chloride Level 112 H Carbon Dioxide Level 25 Anion Gap 6 Blood Urea Nitrogen 18 Creatinine 2.27 H Est Glomerular 37 L Filtrat Rate mL/min Glucose Level 88 Calcium Level 9.1 Total Bilirubin 0.2 Direct Bilirubin 0.00 Indirect Bilirubin 0.2 Aspartate Amino 22 Transf (AST/SGOT) Alanine 13 Aminotransferase (AL T/SGPT) Alkaline Phosphatase 108 Total Protein 7.6 Albumin 3.8 Globulin 3.80 H Albumin/Globulin 1.00 Ratio Urine Color STRAW Urine Clarity CLEAR Urine pH 5.0 Urine Specific 1.009 [place] Urine Ketones NEGATIVE Urine Nitrite NEGATIVE Urine Bilirubin NEGATIVE Urine Urobilinogen NEGATIVE Urine Leukocyte NEGATIVE Esterase Urine Microscopic 1 RBC Urine Microscopic 0 WBC Urine Hemoglobin NEGATIVE Urine Glucose NEGATIVE Urine Total Protein 3+ H Hemoglobin A1c 5.0 Magnesium Level 1.9 Iron Level 88 Total Iron Binding 260 Capacity Percent Iron 34 Saturation Ferritin 24.4 Triglycerides Level 103 Cholesterol Level 146 LDL Cholesterol, 93 Calculated HDL Cholesterol 32 Cholesterol/HDL 4.5 Ratio Thyroid Stimulating 0.927 Hormone (TSH) Test 10/05/18 11:19 10/05/18 12:48 White Blood Count 5.1 Red Blood Count 4.24 L Hemoglobin 11.0 L Hematocrit 34.0 L Mean Corpuscular 80.2 L Volume Mean Corpuscular 25.9 L Hemoglobin Mean Corpuscular 32.4 Hemoglobin Concent Red Cell 15.4 H Distribution Width Platelet Count 174 Mean Platelet Volume 10.3 Immature 0.200 Granulocytes % Neutrophils % 70.4 Lymphocytes % 18.5 Monocytes % 7.3 Eosinophils % 3.2 Basophils % 0.4 Nucleated Red Blood 0.0 Cells % Immature 0.010 Granulocytes # Neutrophils # 3.6 Lymphocytes # 0.9 Monocytes # 0.4 Eosinophils # 0.2 Basophils # 0.0 Nucleated Red Blood 0.0 Cells # Bedside Glucose 85 Medications Medication Current Medications Sodium Chloride 1,000 ml @ 75 mls/hr [id number] IV Last administered on 10/05/18at 09:24; Admin Dose 75 MLS/HR; Start 10/04/18 at 19:59 IV Flush (NS 3 ml) 3 ml PER PROTOCOL IV ; Start 10/04/18 at 20:00 Ondansetron HCl (Zofran Inj) 4 mg Q6H PRN IV NAUSEA/VOMITING; Start 10/04/18 at 20:00 Metoclopramide HCl (Reglan) 5 mg Q6H PRN IV NAUSEA/VOMITING; Start 10/04/18 at 20:00 Acetaminophen (Tylenol Tab) 650 mg Q6H PRN PO .PAIN 1-3 OR TEMP; Start 10/04/18 at 20:00 Hydralazine HCl (Apresoline) 50 mg TID PO Last administered on 10/05/18at 13:07; Admin Dose 50 MG; Start 10/05/18 at 08:00 Amlodipine Besylate (Norvasc) 5 mg DAILY PO Last administered on 10/05/18at 09:24; Admin Dose 5 MG; Start 10/04/18 at 21:00 Hydralazine HCl (Apresoline) 10 mg Q4H PRN IV ELEVATED BLOOD PRESSURE Last administered on 10/05/18at 12:17; Admin Dose 10 MG; Start 10/05/18 at 00:00 Hydromorphone HCl (Dilaudid) 1 mg Q4H PRN IV SEVERE PAIN LEVEL 7-10 Last administered on 10/05/18at 09:23; Admin Dose 1 MG; Start 10/04/18 at 23:00 Pantoprazole 80 mg/Sodium Chloride 100 ml @ 10 mls/hr Q10H IV Last adm inistered on 10/05/18at 13:07; Admin Dose 10 MLS/HR; Start 10/05/18 at 03:00 Tamsulosin HCl (Flomax) 0.4 mg QHS PO ; Start 10/05/18 at 21:00 Past Medical History reviewed Home Meds Reported Medications Lisinopril* (Lisinopril*) 40 Mg Tablet, 40 MG PO DAILY, #30 TAB 10/04/18 Tamsulosin Hcl* (Flomax*) 0.4 Mg Cap.er.24h, 0.4 MG PO DAILY, CAP 10/04/18 Hydralazine Hcl* (Hydralazine Hcl*) 50 Mg Tab, 50 MG PO TID, #90 TAB 10/04/18 Medications Current Medications Sodium Chloride 1,000 ml @ 75 mls/hr [id number] IV Last administered on 10/05/18at 09:24; Admin Dose 75 MLS/HR; Start 10/04/18 at 19:59 IV Flush (NS 3 ml) 3 ml PER PROTOCOL IV ; Start 10/04/18 at 20:00 Ondansetron HCl (Zofran Inj) 4 mg Q6H PRN IV NAUSEA/VOMITING; Start 10/04/18 at 20:00 Metoclopramide HCl (Reglan) 5 mg Q6H PRN IV NAUSEA/VOMITING; Start 10/04/18 at 20:00 Acetaminophen (Tylenol Tab) 650 mg Q6H PRN PO .PAIN 1-3 OR TEMP; Start 10/04/18 at 20:00 Hydralazine HCl (Apresoline) 50 mg TID PO Last administered on 10/05/18at 13:07; Admin Dose 50 MG; Start 10/05/18 at 08:00 Amlodipine Besylate (Norvasc) 5 mg DAILY PO Last administered on 10/05/18at 09:24; Admin Dose 5 MG; Start 10/04/18 at 21:00 Hydralazine HCl (Apresoline) 10 mg Q4H PRN IV ELEVATED BLOOD PRESSURE Last administered on 10/05/18at 12:17; Admin Dose 10 MG; Start 10/05/18 at 00:00 Hydromorphone HCl (Dilaudid) 1 mg Q4H PRN IV SEVERE PAIN LEVEL 7-10 Last administered on 10/05/18at 09:23; Admin Dose 1 MG; Start 10/04/18 at 23:00 Pantoprazole 80 mg/Sodium Chloride 100 ml @ 10 mls/hr Q10H IV Last administered on 10/05/18at 13:07; Admin Dose 10 MLS/HR; Start 10/05/18 at 03:00 Tamsulosin HCl (Flomax) 0.4 mg QHS PO ; Start 10/05/18 at 21:00 Allergies: Coded Allergies: ketorolac (Verified Allergy, Mild, 10/04/18) tramadol (Verified Allergy, Mild, 10/04/18) Past Surgical History reviewed Social History reviewed Alcohol Use: none Smoking Status: Never smoker Drug Use: none HERMINIO ORNELAS Oct 05, 2018 14:05 MOHINDER BELTRAN NP Oct 05, 2018 16:51
--- NOTE | 2018-10-05 16:05 | PREAC ---
Date/Time of Note Date/Time of Note DATE: 10/05/18 TIME: 16:03 Anesthesia Eval and Record Evaluation Time Pre-Procedure Interview DATE: 10/05/18 TIME: 16:03 Age 53 Sex male NPO: 8 hrs Preoperative diagnosis GI bleed Planned procedure EGD Past Medical History Past Medical History: Includes Cardio: HTN Neuro: Seizure disorder Renal: MAYA GI: Morbid obesity Surgery & Anesthesia Issues No known issue Meds Anticoagulation: No Beta Alejandro within 24 hr: No Reason Beta Alejandro not given: Pt. not on B-Alejandor Reported Medications Lisinopril* (Lisinopril*) 40 Mg Tablet, 40 MG PO DAILY, #30 TAB 10/04/18 Tamsulosin Hcl* (Flomax*) 0.4 Mg Cap.er.24h, 0.4 MG PO DAILY, CAP 10/04/18 Hydralazine Hcl* (Hydralazine Hcl*) 50 Mg Tab, 50 MG PO TID, #90 TAB 10/04/18 Current Medications Sodium Chloride 1,000 ml @ 75 mls/hr [id number] IV Last administered on 10/05/18at 09:24; Admin Dose 75 MLS/HR; Start 10/04/18 at 19:59 IV Flush (NS 3 ml) 3 ml PER PROTOCOL IV ; Start 10/04/18 at 20:00 Ondansetron HCl (Zofran Inj) 4 mg Q6H PRN IV NAUSEA/VOMITING; Start 10/04/18 at 20:00 Metoclopramide HCl (Reglan) 5 mg Q6H PRN IV NAUSEA/VOMITING; Start 10/04/18 at 20:00 Acetaminophen (Tylenol Tab) 650 mg Q6H PRN PO .PAIN 1-3 OR TEMP; Start 10/04/18 at 20:00 Hydralazine HCl (Apresoline) 50 mg TID PO Last administered on 10/05/18at 13:07; Admin Dose 50 MG; Start 10/05/18 at 08:00 Amlodipine Besylate (Norvasc) 5 mg DAILY PO Last administered on 10/05/18at 09:24; Admin Dose 5 MG; Start 10/04/18 at 21:00 Hydralazine HCl (Apresoline) 10 mg Q4H PRN IV ELEVATED BLOOD PRESSURE Last administered on 10/05/18at 12:17; Admin Dose 10 MG; Start 10/05/18 at 00:00 Hydromorphone HCl (Dilaudid) 1 mg Q4H PRN IV SEVERE PAIN LEVEL 7-10 Last administered on 10/05/18at 09:23; Admin Dose 1 MG; Start 10/04/18 at 23:00 Pantoprazole 80 mg/Sodium Chloride 100 ml @ 10 mls/hr Q10H IV Last administered on 10/05/18at 13:07; Admin Dose 10 MLS/HR; Start 10/05/18 at 03:00 Tamsulosin HCl (Flomax) 0.4 mg QHS PO ; Start 10/05/18 at 21:00 Meds reviewed: Yes Allergies Coded Allergies: ketorolac (Verified Allergy, Mild, 10/04/18) tramadol (Verified Allergy, Mild, 10/04/18) Allergies Reviewed: Yes Labs/Studies Labs Reviewed: Reviewed by anesthesiologist Result Diagram: 10/05/18 1119 10/04/18 1540 Laboratory Tests 10/05/18 11:19 Blood Bank Test 10/04/18 16:40 Antibody Screen NEGATIVE Blood Type O POSITIVE test: N/A Studies: ECG (SR) Pre-procedure Exam Last vitals Vital Signs Date Temp Pulse Resp B/P (MAP) Pulse Ox O2 O2 Flow FiO2 Time Delivery Rate 10/05/18 98.5 81 18 203/101 100 Room Air 15:06 (135) 10/05/18 5 15:00 Airway: Adequate mouth opening Mallampati: Mallampati II Teeth: Normal Lung: Normal Heart: Normal ASA Physical Status ASA physical status: 3 Emergency: None Planned Anesthetic General/MAC: MAC Pre-operative Attestations Prior to commencing anesthesia and surgery, the patient was re-evaluated, there was verification of: *The patient's identity *The results of appropriate recent lab work and preoperative vital signs *The above evaluation not changing prior to induction *Anesthetic plan, risk benefits, alternative and complications discussed with patient/family; questions answered; patient/family understands, accepts and wishes to proceed. HUNG NUNEZ Oct 05, 2018 16:05
[2018-10-05] MEDS ORDERED: LIDOCAINE 2% (SDV) 5 ML INJ ONE (16:06)
[2018-10-05] MEDS ORDERED: PROPOFOL 60 ML ONE (16:06)
[2018-10-05] MEDS ORDERED: MEPERIDINE 25 MG INJ IV PRN (16:30)
[2018-10-05] MEDS ORDERED: hydrALAzine 20 MG INJ IV PRN (16:30)
[2018-10-05] MEDS ORDERED: FENTAnyl 50 MCG/ML VIAL IV PRN (16:30)
[2018-10-05] MEDS ORDERED: DIPHENHYDRAMINE 50 MG INJ IV PRN (16:30)
[2018-10-05] MEDS ORDERED: ONDANSETRON 4 MG INJ IV PRN (16:30)
--- NOTE | 2018-10-05 16:31 | PAC ---
Date/Time of Note Date/Time of Note DATE: 10/05/18 TIME: 16:30 Post-Anesthesia Notes Post-Anesthesia Note Last documented vital signs Vital Signs Date Temp Pulse Resp B/P (MAP) Pulse Ox O2 O2 Flow FiO2 Time Delivery Rate 10/05/18 98.5 81 18 203/101 100 Room Air 15:06 (135) 10/05/18 5 15:00 Activity: WNL Respiratory function: WNL Cardiovascular function: WNL Mental status: Baseline Pain reasonably controlled: Yes Hydration appropriate: Yes Nausea/Vomiting absent: Yes Comments BP:148/88, P:84, Spo2:100%, T:98,8 SUSIE THORNE MD Oct 05, 2018 16:31
[2018-10-05] MEDS: LABETALOL HCL 20MG INJ IV PRN ×3 (16:42→17:03)
--- NOTE | 2018-10-05 17:19 | RADRPT ---
Vent Rate: 86 bpm RR Interval: 0 msec [place] Interval: 186 msec QRS Duration: 88 msec QT Interval: 366 msec QTC Interval: 437 msec P-R-T [place]: 58 - 4 - 4 degrees Normal sinus rhythm Minimal voltage criteria for LVH, may be normal variant Borderline ECG Electronically Signed By: Pete Mccann
[2018-10-05] MEDS: PANTOPRAZOLE (EC) 40 MG TAB PO SCH (17:51)
--- NOTE | 2018-10-05 18:45 | CONS ---
DATE OF ADMISSION: 10/04/2018 DATE OF CONSULTATION: 10/05/2018 TYPE OF CONSULTATION: Nephrology. REASON FOR CONSULTATION: Acute kidney injury, CKD. PHYSICIAN REQUESTING CONSULT: Henry Collazo MD HISTORY OF PRESENT ILLNESS: This is a 53-year-old male with a past medical history of chronic kidney disease stage III with unknown baseline creatinine, a history of hypertension, history of BPH, who p resents to [facility] with midepigastric burning pain over the past 3 days. The pa gurvinder stated he started to have black stools. He called his primary care physician and was told to c ome to the emergency room. The patient, upon arrival, was started on Protonix drip and was admitted to med/surg for evaluation. In terms of patient's renal history, the patient has underlying history of chronic kidney disease. Gurdeep wan has not seen a professor of industrial technology, but he has been told that he has underlying disease. The patient does have renal biopsy. He does not know what his baseline creatinine is. He denies any hemoptysis or h ematemesis. The patient is noted to have dark stools as stated above. PAST MEDICAL HISTORY: History of hypertension, history of BPH. PAST SURGICAL HISTORY: Reviewed. ALLERGIES: NO KNOWN DRUG ALLERGIES. FAMILY HISTORY: No family history of kidney disease. SOCIAL HISTORY: Does not drink, smoke or do drugs. MEDICATIONS: Have been reviewed. REVIEW OF SYSTEMS: A 14-point review of systems was conducted. Pertinent positives stated in HPI, o therwise negative. PHYSICAL EXAMINATION: VITAL SIGNS: Blood pressure is 193/103, respiratory rate 20, pulse 85, temperature 98.2. HEENT: Head is normocephalic. NECK: Supple. HEART: Regular rate. LUNGS: Show diminished breath sounds at the base. ABDOMEN: Soft, nontender to palpation without rebound or guarding. EXTREMITIES: Negative for clubbing, cyanosis. No edema. DERMATOLOGIC: No rashes. MUSCULOSKELETAL: No joint effusion. NEUROLOGIC: No change in exam. IMAGING STUDIES: Have been reviewed. CT scan of the brain was reviewed. LABORATORY DATA: Have been reviewed. ASSESSMENT AND PLAN: 1. Chronic kidney disease stage III with possible component of acute kidney injury. Etiology is pos sible acute kidney injury may be secondary to hemodynamics, NETTA inhibitor effects. The patient's uri nalysis was reviewed, no active sediment. The patient is currently receiving IV fluids. The recomme ndation is to continue current medical management. Continue gentle IV hydration. We will check a re nal ultrasound to evaluate renal parenchyma. Otherwise, continue supportive care, renally dose all m eds. We would defer NETTA inhibitors or ARBs at this time until renal function is noted to be stable. We will monitor closely. 2. Hypertensive urgency. Etiology may be secondary to underlying pain, possible IV fluids. We will monitor blood pressure closely. If blood pressure remains elevated, we would discontinue IV hydrati on. Continue IV hydralazine. We will monitor closely. 3. Anemia. Monitor hemoglobin and hematocrit levels. 4. Mineral bone disorder. Monitor calcium and phosphorus levels. 5. Acute gastrointestinal bleed. Etiology may be secondary to peptic ulcer disease. Continue PPI. Follow up with GI. 6. Obesity. Continue dietary modification. 7. Benign prostatic hypertrophy. Continue medical management. Thank you, Dr. Collazo, for this interesting consult. It will be a pleasure to follow patient with y gabi throughout the hospital course. Dictated By: BRUNA THORNTON DO NR/NTS Conf#: [id number] DID#: [id number] CC: HENRY COLLAZO MD;*EndCC*
[2018-10-05] MEDS: TAMSULOSIN (SR) 0.4 MG CAP PO SCH (20:10)
[2018-10-05] MEDS ORDERED: LORAZEPAM 2 MG INJ ONE (23:57)
[2018-10-06] MEDS ORDERED: LORAZEPAM 2 MG INJ IV PRN
[2018-10-06] MEDS ORDERED: LORAZEPAM 2 MG INJ IV ONE
[2018-10-06 02:00] VITALS: BP 165/79; PULSE 87; RESP 19
[2018-10-06] MEDS: HYDROmorphONE 1 MG/ML SYG IV PRN ×5 (02:17→21:48)
[2018-10-06] MEDS: SOD CHLORIDE 0.9% 1,000 ML IV SCH (03:37)
[2018-10-06] MEDS: PANTOPRAZOLE (EC) 40 MG TAB PO SCH ×2 (06:23→17:45)
--- NOTE | 2018-10-06 06:26 | EEG ---
EEG NOTE Report Details DATE OF TEST: 10/05/18 HISTORY: The patient is a 53-year-old M who presents with a transient lapse in awareness. This EEG is requested to evaluate for an epileptic disorder. SEDATION: None. CONDITIONS OF RECORDING: This EEG was recorded digitally on the [employer] Workstream[employer] machine, using the International 10-20 System of electrodes plus anterior temporals and Nz. STATES SAMPLED: Wakefulness and drowsiness. FINDINGS: During wakefulness, there is a 9 Hz posterior dominant rhythm, which attenuates normally with eye opening. There is a normal [id number] frequency-amplitude gradient. The remainder of the awake background is normal. Photic stimulation does not elicit any definite driving responses or epileptiform discharges. Hyperventilation was not performed. The patient became drowsy but did not pass into sleep. No asymmetries, focal abnormalities or epileptiform discharges were seen. IMPRESSION: Normal electroencephalogram during wakefulness and drowsiness. HERMINIO ORNELAS Oct 06, 2018 06:26
[2018-10-06 07:50] VITALS: BP 187/90; PULSE 76; RESP 19
[2018-10-06] MEDS: AMLODIPINE 5 MG TAB PO SCH (08:01)
[2018-10-06] MEDS: hydrALAzine 20 MG INJ IV PRN (09:29)
--- NOTE | 2018-10-06 09:51 | PN ---
DATE: 10/06/2018 SUBJECTIVE: The patient is stable, no acute events noted overnight. The patient had an EGD with a d iagnosis of gastritis. No other events noted. OBJECTIVE: VITAL SIGNS: Blood pressure is 187/90, respirations 19, pulse 76, temperature 98.6. HEENT: Head is normocephalic. NECK: Supple. HEART: Regular rate. LUNGS: Show diminished breath sounds at the base. ABDOMEN: Soft, nontender to palpation without rebound or guarding. EXTREMITIES: Negative for clubbing, cyanosis, no edema. DERMATOLOGIC: No rashes. MUSCULOSKELETAL: No joint effusion. NEUROLOGIC: No change in exam. MEDICATIONS: Reviewed. LABORATORY DATA: Reviewed. Urinalysis was reviewed. IMAGING STUDIES: Renal ultrasound was reviewed. ASSESSMENT AND PLAN: 1. Nonoliguric acute kidney injury on top of chronic kidney disease stage III with unknown baseline creatinine. Etiology of acute kidney injury is secondary to hemodynamics. Renal function is improvi ng. At this point, we will continue medical management. We will discontinue IV fluids. The patient is euvolemic. Continue supportive care, renally dose all medicines and avoid nephrotoxins. If gayatri l function remains stable, we will consider reinitiating NETTA inhibitor or ARB. 2. Hypertensive urgency, etiology is in part due to underlying pain and IV fluids. Plan is to disco ntinue IV fluids, monitor blood pressure closely, adjust blood pressure medications. 3. Anemia. Monitor hemoglobin and hematocrit levels. 4. Mineral bone disorder. Monitor calcium and phosphorus levels. 5. Abdominal pain, status post EGD with possible gastritis. Continue medical management. 6. Acute gastrointestinal bleed secondary to gastritis. Continue to monitor. 7. Obesity. 8. Benign prostatic hypertrophy. Dictated By: BRUNA THORNTON DO NR/NTS Conf#: [id number] DID#: [id number] CC: BRUNA THORNTON DO; SANDY COLLAZO MD;*End*
--- NOTE | 2018-10-06 11:20 | CONS ---
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 He was noted to have a transient loss of awareness, for which neurology is consulted. Most clinically concerning for seizures. Syncope is less likely. Recent CTH was unrevealing. EEG is without epileptiform activity. P: MRI brain without contrast for further characterization Start Keppra 500mg BID for seizure ppx. Ativan IV PRN seizure > 5 min or for cluster episodes Await orthostatics Cont other medical management per primary Will follow clinically, to recommend neurologic studies, as necessary Consultation Date/Type/Reason Admit Date/Time Oct 04, 2018 at 19:45 Type of Consult Neurology Requesting Provider: SHAR LINDSEY NP Date/Time of Note DATE: 10/06/18 TIME: 11:19 24 HR Interval Summary Free Text/Dictation Continues acute care. Pt reportedly had a seizure episode overnight where the pt yelled and then a had grand mal seizure lasting 1 min. Exam Vital Signs Vitals Vital Signs Date Temp Pulse Resp B/P (MAP) Pulse Ox O2 O2 Flow FiO2 Time Delivery Rate 10/06/18 98.6 76 19 187/90 98 07:50 (122) 10/05/18 Room Air 17:15 10/05/18 3.0 16:54 Intake and Output 10/05/18 10/05/18 10/06/18 1414:59 22:59 06:59 IntakeIntake Total 455 ml 1040 ml 1090 ml OutputOutput Total 3250 ml 1875 ml 1200 ml BalanceBalance -2795 ml -835 ml -110 ml Exam PE: Gen Appearance: No Apparent Distress; obese HEENT: Normocephalic Cardiovascular: Regular rate Lungs: Clear bilaterally Abdomen: Soft Extremities: Dry NE: The patient was alert and oriented.. Language was normal. Fund of knowledge was normal. Pupils were equal and reactive to light. There was no afferent pupillary defect. Visual araiza were normal. Funduscopic examination was limited. Extra-ocular movements were full. Ptosis was absent. There was no nystagmus. Facial sensation was normal. Face was symmetric with normal strength. Hearing was intact. Palate movements were normal. Neck strength was normal. There was normal tongue bulk and speed of movement. Tone was normal. Muscle bulk was normal. I did not see fasciculations. Arms and legs were strong. Vibration sensation was normal. Temperature and pinprick sensation was normal. Rapid alternating movements were normal. There was no dysmetria. There was no intention tremor. Gait was deferred due to bedrest. Arm and leg reflexes were 2+ and symmetric. Rankin's sign was absent. Plantar responses were flexor. MOHINDER BELTRAN NP Oct 06, 2018 11:20 HERMINIO ORNELAS Oct 06, 2018 14:32
--- NOTE | 2018-10-06 11:30 | PN ---
Date/Time of Note Date/Time of Note DATE: 10/06/18 TIME: 11:24 Assessment/Plan VTE Prophylaxis Risk score (from Ns)>0 risk: 2 SCD applied (from Ns): Yes Pharmacological prophylaxis: NA/contraindicated Pharm contraindication: bleeding Lines/Catheters IV Catheter Type (from [facility]): Peripheral IV Urinary Cath still in place: No Assessment/Plan Hospital Course SUBJECTIVE: Apparently patient had seizures early this morning. PHYSICAL EXAM: Constitutional: Well-developed, well-nourished not in acute distress. HEENT: Head atraumatic and normocephalic. Eyes: Extraocular muscles intact. Anicteric sclerae. Pupils equal bilaterally, reactive to light. NECK: Supple without lymph node. CHEST: Clear and good breath sounds equally. No wheezing. No rhonchi. HEART: S1, S2. Regular rate and rhythm. ABDOMEN: mild tenderness epigastric area. Soft with no rebound tenderness. Bowel sounds were present. EXTREMITIES: Full range of motion in all the extremities. No cyanosis, clubbing or edema. NEUROLOGIC: Alert and oriented x3. No focal deficit. No sensory deficit. PSYCHOSOCIAL: slow response, lack of interest in conversing. INTEGUMENTARY: Moist mucous membranes. Good skin turgor, intact. 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 1. Melena secondary to gastritis. -stable -Status post EGD with mild gastritis and evidence of previous clips. -Continue PPI therapy 2. Seizures -f/u neurology recs -PRN Ativan 3. Hypertension, poorly controlled -Needs more control. Will start metoprolol. Continue hydralazine and amlodipine. 4. Anemia, likely chronic. -Stable H&H. Continue monitoring. 5. Acute kidney injury on CKD. -Creatinine improved. Likely can be initiated on NETTA inhibitors, defer to nephrology. 6. Obesity with BMI 38.0 -Weight reduction advised DVT prophylaxis: SCDs PUD prophylaxis: PPI Disposition: Continue current management. Follow-up consultants renuka mmendations. DC planning in next 24 hours if hemoglobin and renal function remained stable. Patient was seen in collaboration with Dr. Anderson. Result Diagram: 10/06/18 0120 10/06/18 0507 Results 24hrs Laboratory Tests Test 10/05/18 12:48 10/05/18 14:00 10/06/18 01:20 10/06/18 05:07 Bedside Glucose 85 Urine Random 25.98 Creatinine Urine Random Sodium 145 H Urine Total Protein 154.0 H Urine Opiates Screen Positive Urine Barbiturates Negative Urine Amphetamines Negative Screen Urine Negative Benzodiazepines Screen Urine Cocaine Screen Negative Urine Cannabinoids Negative White Blood Count 6.4 # Red Blood Count 4.12 L Hemoglobin 10.7 L Hematocrit 33.0 L Mean Corpuscular 80.1 L Volume Mean Corpuscular 26.0 L Hemoglobin Mean Corpuscular 32.4 Hemoglobin Concent Red Cell 15.5 H Distribution Width Platelet Count 174 Mean Platelet Volume 10.5 H Immature 0.300 Granulocytes % Neutrophils % 74.7 Lymphocytes % 15.4 Monocytes % 7.2 Eosinophils % 2.2 Basophils % 0.2 Nucleated Red Blood 0.0 Cells % Immature 0.020 Granulocytes # Neutrophils # 4.7 Lymphocytes # 1.0 Monocytes # 0.5 Eosinophils # 0.1 Basophils # 0.0 Nucleated Red Blood 0.0 Cells # Sodium Level 140 Potassium Level 3.6 Chloride Level 106 Carbon Dioxide Level 26 Anion Gap 8 Blood Urea Nitrogen 12 Creatinine 1.71 H Est Glomerular 51 L Filtrat Rate mL/min Glucose Level 98 Calcium Level 8.6 Exam/Review of Systems Exam Vitals Vital Signs Date Temp Pulse Resp B/P (MAP) Pulse Ox O2 O2 Flow FiO2 Time Delivery Rate 10/06/18 98.6 76 19 187/90 98 07:50 (122) 10/05/18 Room Air 17:15 10/05/18 3.0 16:54 Intake and Output 10/05/18 10/05/18 10/06/18 1515:00 23:00 07:00 IntakeIntake Total 475 ml 1020 ml 1090 ml OutputOutput Total 3250 ml 1875 ml 1200 ml BalanceBalance -2775 ml -855 ml -110 ml Results Results 24hrs Laboratory Tests Test 10/05/18 12:48 10/05/18 14:00 10/06/18 01:20 10/06/18 05:07 Bedside Glucose 85 Urine Random 25.98 Creatinine Urine Random Sodium 145 H Urine Total Protein 154.0 H Urine Opiates Screen Positive Urine Barbiturates Negative Urine Amphetamines Negative Screen Urine Negative Benzodiazepines Screen Urine Cocaine Screen Negative Urine Cannabinoids Negative White Blood Count 6.4 # Red Blood Count 4.12 L Hemoglobin 10.7 L Hematocrit 33.0 L Mean Corpuscular 80.1 L Volume Mean Corpuscular 26.0 L Hemoglobin Mean Corpuscular 32.4 Hemoglobin Concent Red Cell 15.5 H Distribution Width Platelet Count 174 Mean Platelet Volume 10.5 H Immature 0.300 Granulocytes % Neutrophils % 74.7 Lymphocytes % 15.4 Monocytes % 7.2 Eosinophils % 2.2 Basophils % 0.2 Nucleated Red Blood 0.0 Cells % Immature 0.020 Granulocytes # Neutrophils # 4.7 Lymphocytes # 1.0 Monocytes # 0.5 Eosinophils # 0.1 Basophils # 0.0 Nucleated Red Blood 0.0 Cells # Sodium Level 140 Potassium Level 3.6 Chloride Level 106 Carbon Dioxide Level 26 Anion Gap 8 Blood Urea Nitrogen 12 Creatinine 1.71 H Est Glomerular 51 L Filtrat Rate mL/min Glucose Level 98 Calcium Level 8.6 Medications Medication Current Medications IV Flush (NS 3 ml) 3 ml PER PROTOCOL IV ; Start 10/04/18 at 20:00 Ondansetron HCl (Zofran Inj) 4 mg Q6H PRN IV NAUSEA/VOMITING; Start 10/04/18 at 20:00 Metoclopramide HCl (Reglan) 5 mg Q6H PRN IV NAUSEA/VOMITING; Start 10/04/18 at 20:00 Acetaminophen (Tylenol Tab) 650 mg Q6H PRN PO .PAIN 1-3 OR TEMP; Start 10/04/18 at 20:00 Hydralazine HCl (Apresoline) 10 mg Q4H PRN IV ELEVATED BLOOD PRESSURE Last administered on 10/06/18at 09:29; Admin Dose 10 MG; Start 10/05/18 at 00:00 Hydromorphone HCl (Dilaudid) 1 mg Q4H PRN IV SEVERE PAIN LEVEL 7-10 Last administered on 10/06/18at 07:56; Admin Dose 1 MG; Start 10/04/18 at 23:00 Tamsulosin HCl (Flomax) 0.4 mg QHS PO Last administered on 10/05/18at 20:10; Admin Dose 0.4 MG; Start 10/05/18 at 21:00 Pantoprazole (Protonix Tab) 40 mg BID@18 PO Last administered on 10/06/18at 06:23; Admin Dose 40 MG; Start 10/05/18 at 18:00 Lorazepam (Ativan) 1 mg Q2H PRN IV seizures; Start 10/06/18 at 00:00 Amlodipine Besylate (Norvasc) 10 mg DAILY PO ; Start 10/07/18 at 09:00 Hydralazine HCl (Apresoline) 75 mg TID PO ; Start 10/06/18 at 13:00 SHAR LINDSEY NP Oct 06, 2018 11:30
[2018-10-06] MEDS: METOPROLOL 25 MG TAB PO SCH (11:49)
--- NOTE | 2018-10-06 12:12 | PN ---
Date/Time of Note Date/Time of Note DATE: 10/06/18 TIME: 12:08 Assessment/Plan VTE Prophylaxis Risk score (from Ns)>0 risk: 2 SCD applied (from Ns): Yes Pharmacological prophylaxis: NA/contraindicated Pharm contraindication: bleeding Lines/Catheters IV [facility] Saline Lock Urinary Cath still in place: No Assessment/Plan Assessment/Plan Assessment: Melena Status post EGD 10/05/2018 -Gastritis -2 clips found in the stomach from previous endoscopy -Biopsies obtained Epigastric pain Mild anemia Hypertension Obesity BPH Plan: Reviewed results of pathology when available Continue Protonix Advance diet Patient appears adequate for outpatient management Patient seen in collaboration with Dr. Sorenson Subjective: Patient is feeling better. He is still complaining of epigastric tenderness and some melena. Hemoglobin is stable. Discussed results of EGD. Patient appears adequate for outpatient management. PHYSICAL EXAMINATION: GENERAL: Well developed, obese, well nourished, alert & oriented x 3, in no acute distress SKIN: No lesions, no stigmata chronic liver disease, no evidence of bleeding diathesis LYMPHATIC: No palpable lymphadenopathy. HEAD: Normocephalic, atraumatic, no tenderness. EYES: Pupils equal reactive to light and accommodation, full extraocular movements, sclera clear, non-icteric, no discharge. EARS/NOSE AND THROAT: Ears normal, nose normal, oropharynx normal, oral membranes well hydrated without lesions. NECK: Supple, no masses, thyroid normal, JVP within normal limits, carotids normal without bruits. CHEST: Inspection within normal limits. CARDIOVASCULAR: Heart: Regular rate and rhythm, no murmurs, gallops or rubs. Peripheral pulses present within normal limits, no cyanosis, clubbing or edemas. No pulsatile abdominal mass RESPIRATORY: Lungs clear to auscultation and percussion, no wheezing, no rubs GASTROINTESTINAL AND LIVER: Abdomen: Soft, epigastric tenderness, non-distended, no hernias, no masses, no organomegaly, no ascites, no guarding, no rebound tenderness, normoactive bowel sounds. Rectal: Deferred. GENITOURINARY: Male genitalia within normal limits. EXTREMITIES: No cyanosis, clubbing or edema. Result Diagram: 10/06/18 0120 10/06/18 0507 Results 24hrs Laboratory Tests Test 10/05/18 12:48 10/05/18 14:00 10/06/18 01:20 10/06/18 05:07 Bedside Glucose 85 Urine Random 25.98 Creatinine Urine Random Sodium 145 H Urine Total Protein 154.0 H Urine Opiates Screen Positive Urine Barbiturates Negative Urine Amphetamines Negative Screen Urine Negative Benzodiazepines Screen Urine Cocaine Screen Negative Urine Cannabinoids Negative White Blood Count 6.4 # Red Blood Count 4.12 L Hemoglobin 10.7 L Hematocrit 33.0 L Mean Corpuscular 80.1 L Volume Mean Corpuscular 26.0 L Hemoglobin Mean Corpuscular 32.4 Hemoglobin Concent Red Cell 15.5 H Distribution Width Platelet Count 174 Mean Platelet Volume 10.5 H Immature 0.300 Granulocytes % Neutrophils % 74.7 Lymphocytes % 15.4 Monocytes % 7.2 Eosinophils % 2.2 Basophils % 0.2 Nucleated Red Blood 0.0 Cells % Immature 0.020 Granulocytes # Neutrophils # 4.7 Lymphocytes # 1.0 Monocytes # 0.5 Eosinophils # 0.1 Basophils # 0.0 Nucleated Red Blood 0.0 Cells # Sodium Level 140 Potassium Level 3.6 Chloride Level 106 Carbon Dioxide Level 26 Anion Gap 8 Blood Urea Nitrogen 12 Creatinine 1.71 H Est Glomerular 51 L Filtrat Rate mL/min Glucose Level 98 Calcium Level 8.6 CC: ELIU SORENSON MD ; Exam/Review of Systems Exam Vitals Vital Signs Date Temp Pulse Resp B/P (MAP) Pulse Ox O2 O2 Flow FiO2 Time Delivery Rate 10/06/18 98.6 76 19 187/90 98 07:50 (122) 10/05/18 Room Air 17:15 10/05/18 3.0 16:54 Intake and Output 10/05/18 10/05/18 10/06/18 1515:00 23:00 07:00 IntakeIntake Total 475 ml 1020 ml 1090 ml OutputOutput Total 3250 ml 1875 ml 1200 ml BalanceBalance -2775 ml -855 ml -110 ml Results Results 24hrs Laboratory Tests Test 10/05/18 12:48 10/05/18 14:00 10/06/18 01:20 10/06/18 05:07 Bedside Glucose 85 Urine Random 25.98 Creatinine Urine Random Sodium 145 H Urine Total Protein 154.0 H Urine Opiates Screen Positive Urine Barbiturates Negative Urine Amphetamines Negative Screen Urine Negative Benzodiazepines Screen Urine Cocaine Screen Negative Urine Cannabinoids Negative White Blood Count 6.4 # Red Blood Count 4.12 L Hemoglobin 10.7 L Hematocrit 33.0 L Mean Corpuscular 80.1 L Volume Mean Corpuscular 26.0 L Hemoglobin Mean Corpuscular 32.4 Hemoglobin Concent Red Cell 15.5 H Distribution Width Platelet Count 174 Mean Platelet Volume 10.5 H Immature 0.300 Granulocytes % Neutrophils % 74.7 Lymphocytes % 15.4 Monocytes % 7.2 Eosinophils % 2.2 Basophils % 0.2 Nucleated Red Blood 0.0 Cells % Immature 0.020 Granulocytes # Neutrophils # 4.7 Lymphocytes # 1.0 Monocytes # 0.5 Eosinophils # 0.1 Basophils # 0.0 Nucleated Red Blood 0.0 Cells # Sodium Level 140 Potassium Level 3.6 Chloride Level 106 Carbon Dioxide Level 26 Anion Gap 8 Blood Urea Nitrogen 12 Creatinine 1.71 H Est Glomerular 51 L Filtrat Rate mL/min Glucose Level 98 Calcium Level 8.6 Medications Medication Current Medications IV Flush (NS 3 ml) 3 ml PER PROTOCOL IV ; Start 10/04/18 at 20:00 Ondansetron HCl (Zofran Inj) 4 mg Q6H PRN IV NAUSEA/VOMITING; Start 10/04/18 at 20:00 Metoclopramide HCl (Reglan) 5 mg Q6H PRN IV NAUSEA/VOMITING; Start 10/04/18 at 20:00 Acetaminophen (Tylenol Tab) 650 mg Q6H PRN PO .PAIN 1-3 OR TEMP; Start 10/04/18 at 20:00 Hydralazine HCl (Apresoline) 10 mg Q4H PRN IV ELEVATED BLOOD PRESSURE Last administered on 10/06/18at 09:29; Admin Dose 10 MG; Start 10/05/18 at 00:00 Hydromorphone HCl (Dilaudid) 1 mg Q4H PRN IV SEVERE PAIN LEVEL 7-10 Last administered on 10/06/18at 07:56; Admin Dose 1 MG; Start 10/04/18 at 23:00 Tamsulosin HCl (Flomax) 0.4 mg QHS PO Last administered on 10/05/18at 20:10; Admin Dose 0.4 MG; Start 10/05/18 at 21:00 Pantoprazole (Protonix Tab) 40 mg BID@,18 PO Last administered on 10/06/18at 06:23; Admin Dose 40 MG; Start 10/05/18 at 18:00 Lorazepam (Ativan) 1 mg Q2H PRN IV seizures; Start 10/06/18 at 00:00 Amlodipine Besylate (Norvasc) 10 mg DAILY PO ; Start 10/07/18 at 09:00 Hydralazine HCl (Apresoline) 75 mg TID PO ; Start 10/06/18 at 13:00 Metoprolol Tartrate (Lopressor) 25 mg DAILY PO Last administered on 10/06/18at 11:49; Admin Dose 25 MG; Start 10/06/18 at 11:30 Clonidine (Catapres) 0.1 mg Q6H PRN PO SBP>160; Start 10/06/18 at 11:30 MARLON PEREZ NP Oct 06, 2018 12:12
[2018-10-06 14:46] VITALS: BP 163/74; PULSE 78; RESP 17
[2018-10-06 19:56] VITALS: BP 167/84; PULSE 81; RESP 19
[2018-10-06] MEDS: TAMSULOSIN (SR) 0.4 MG CAP PO SCH (21:05)
[2018-10-06] MEDS: LEVETIRACETAM 500 MG (PMX) 100 ML IVPB SCH (21:05)
[2018-10-07] VITALS (8 sets, daily range): BP systolic 148–198; BP diastolic 70–91; PULSE 64–83; RESP 18–19
[2018-10-07] MEDS: HYDROmorphONE 1 MG/ML SYG IV PRN ×5 (02:18→20:50)
[2018-10-07] MEDS: PANTOPRAZOLE (EC) 40 MG TAB PO SCH ×2 (05:43→16:59)
[2018-10-07] MEDS: AMLODIPINE 5 MG TAB PO SCH (09:10)
[2018-10-07] MEDS: METOPROLOL 25 MG TAB PO SCH ×2 (09:12→20:54)
[2018-10-07] MEDS: LEVETIRACETAM 500 MG (PMX) 100 ML IVPB SCH ×2 (09:13→20:54)
--- NOTE | 2018-10-07 09:47 | PN ---
DATE: 10/07/2018 SUBJECTIVE: The patient is stable, continues to have midepigastric pain, but improving. No other ev ents noted. OBJECTIVE: VITAL SIGNS: Blood pressure is 168/82, respiration 18, pulse 71, temperature 97.9. HEENT: Head is normocephalic. NECK: Supple. HEART: Regular rate. LUNGS: Show diminished breath sounds at the base. ABDOMEN: Soft, nontender to palpation without rebound or guarding. EXTREMITIES: Negative for clubbing, cyanosis, no edema. DERMATOLOGIC: No rashes. MUSCULOSKELETAL: No joint effusion. NEUROLOGIC: No change in exam. MEDICATIONS: Have been reviewed. LABORATORY DATA: Has been reviewed. ASSESSMENT AND PLAN: 1. Nonoliguric acute injury on top of chronic kidney disease stage III with unknown baseline creatin ine. Etiology of acute kidney injury is secondary to hemodynamics. Renal function has been fluctuat ing. We will continue to monitor, continue supportive care, renally dose all meds. Defer NETTA inhibi tor or ARB at this time. 2. Chronic kidney disease, stage III, with unknown baseline creatinine. Etiology of CKD is likely d ue to hypertensive nephrosclerosis. The patient is currently in acute kidney injury as stated above. Continue current treatment plan. Continue disease factor modification. 3. Hypertension. Blood pressure remains elevated, but improving. Continue to adjust blood pressure regimen. 4. Anemia. Monitor hemoglobin and hematocrit levels. 5. Mineral bone disorder, monitor calcium and phosphorus levels. 6. Abdominal pain, status post EGD with noted gastritis. Continue medical management. 7. Acute gastrointestinal bleed secondary to gastritis. Continue to monitor. 8. Benign prostatic hypertrophy. Dictated By: BRUNA THONRTON DO NR/NTS Conf#: [id number] DID#: [id number] CC: SANDY COLLAZO MD;*EndCC*
--- NOTE | 2018-10-07 09:56 | PN ---
Date/Time of Note Date/Time of Note DATE: 10/07/18 TIME: 09:45 Assessment/Plan VTE Prophylaxis Risk score (from Ns)>0 risk: 2 SCD applied (from Ns): Yes Pharmacological prophylaxis: NA/contraindicated Pharm contraindication: low risk/ambulating Lines/Catheters IV [facility]from [facility] Saline Lock Urinary Cath still in place: No Assessment/Plan Hospital Course SUBJECTIVE: No seizure activities overnight. PHYSICAL EXAM: Constitutional: Well-developed, well-nourished not in acute distress. HEENT: Head atraumatic and normocephalic. Eyes: Extraocular muscles intact. Anicteric sclerae. Pupils equal bilaterally, reactive to light. NECK: Supple without lymph node. CHEST: Clear and good breath sounds equally. No wheezing. No rhonchi. HEART: S1, S2. Regular rate and rhythm. ABDOMEN: mild tenderness epigastric area. Soft with no rebound tenderness. Bowel sounds were present. EXTREMITIES: Full range of motion in all the extremities. No cyanosis, clubbing or edema. NEUROLOGIC:+Post ictal. No focal deficit. No sensory deficit. PSYCHOSOCIAL: slow response, lack of interest in conversing. INTEGUMENTARY: Moist mucous membranes. Good skin turgor, intact. 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 1. Melena secondary to gastritis. -stable -Status post EGD with mild gastritis and evidence of previous clips. -Continue PPI therapy -No further inpatient GI workup needed. 2. Acute seizures/Post ictal state -Continue seizure medications and PRN Ativan. -Follow-up MRI and neurology recommendations. -Neurochecks, seizure precautions. 3. Hypertension, poorly controlled -Needs more control. Will uptitrate metoprolol. Continue amlodipine and hydralazine. 4. Anemia, likely chronic. -Stable H&H. Continue monitoring. 5. Acute kidney injury on CKD. -Nephrology following, follow-up recommendations. -Defer acei therapy to nephro team. 6. Obesity with BMI 38.0 -Weight reduction advised DVT prophylaxis: SCDs PUD prophylaxis: PPI Disposition: Continue current management. Follow-up consultants recommendations. Patient was seen in collaboration with Dr. Anderson. Result Diagram: 10/07/18 0613 10/07/18 0613 Results 24hrs Laboratory Tests Test 10/06/18 13:36 10/07/18 06:13 White Blood Count 6.1 4.5 #L Red Blood Count 4.41 L 4.09 L Hemoglobin 11.4 L 10.5 L Hematocrit 35.1 L 32.5 L Mean Corpuscular Volume 79.6 L 79.5 L Mean Corpuscular Hemoglobin 25.9 L 25.7 L Mean Corpuscular Hemoglobin Concent 32.5 32.3 Red Cell Distribution Width 15.4 H 15.4 H Platelet Count 145 173 Mean Platelet Volume 11.3 H 10.3 Immature Granulocytes % 0.300 0.200 Neutrophils % 73.6 66.1 Lymphocytes % 15.6 20.5 Monocytes % 8.2 9.7 Eosinophils % 2.1 3.1 Basophils % 0.2 0.4 Nucleated Red Blood Cells % 0.0 0.0 Immature Granulocytes # 0.020 0.010 Neutrophils # 4.5 3.0 Lymphocytes # 1.0 0.9 Monocytes # 0.5 0.4 Eosinophils # 0.1 0.1 Basophils # 0.0 0.0 Nucleated Red Blood Cells # 0.0 0.0 Sodium Level 141 Potassium Level 3.7 Chloride Level 107 Carbon Dioxide Level 26 Anion Gap 8 Blood Urea Nitrogen 13 Creatinine 1.92 H Est Glomerular Filtrat Rate mL/min 45 L Glucose Level 94 Calcium Level 8.7 Phosphorus Level 3.7 Magnesium Level 1.9 Exam/Review of Systems Exam Vitals Vital Signs Date Temp Pulse Resp B/P (MAP) Pulse Ox O2 O2 Flow FiO2 Time Delivery Rate 10/07/18 97.9 71 18 168/82 97 Room Air 07:55 (110) 10/05/18 3.0 16:54 Intake and Output 10/06/18 10/06/18 10/07/18 1515:00 23:00 07:00 IntakeIntake Total 1225 ml 100 ml 360 ml OutputOutput Total 1000 ml 300 ml BalanceBalance 1225 ml -900 ml 60 ml Results Results 24hrs Laboratory Tests Test 10/06/18 13:36 10/07/18 06:13 White Blood Count 6.1 4.5 #L Red Blood Count 4.41 L 4.09 L Hemoglobin 11.4 L 10.5 L Hematocrit 35.1 L 32.5 L Mean Corpuscular Volume 79.6 L 79.5 L Mean Corpuscular Hemoglobin 25.9 L 25.7 L Mean Corpuscular Hemoglobin Concent 32.5 32.3 Red Cell Distribution Width 15.4 H 15.4 H Platelet Count 145 173 Mean Platelet Volume 11.3 H 10.3 Immature Granulocytes % 0.300 0.200 Neutrophils % 73.6 66.1 Lymphocytes % 15.6 20.5 Monocytes % 8.2 9.7 Eosinophils % 2.1 3.1 Basophils % 0.2 0.4 Nucleated Red Blood Cells % 0.0 0.0 Immature Granulocytes # 0.020 0.010 Neutrophils # 4.5 3.0 Lymphocytes # 1.0 0.9 Monocytes # 0.5 0.4 Eosinophils # 0.1 0.1 Basophils # 0.0 0.0 Nucleated Red Blood Cells # 0.0 0.0 Sodium Level 141 Potassium Level 3.7 Chloride Level 107 Carbon Dioxide Level 26 Anion Gap 8 Blood Urea Nitrogen 13 Creatinine 1.92 H Est Glomerular Filtrat Rate mL/min 45 L Glucose Level 94 Calcium Level 8.7 Phosphorus Level 3.7 Magnesium Level 1.9 Medications Medication Current Medications IV Flush (NS 3 ml) 3 ml PER PROTOCOL IV ; Start 10/04/18 at 20:00 Ondansetron HCl (Zofran Inj) 4 mg Q6H PRN IV NAUSEA/VOMITING; Start 10/04/18 at 20:00 Metoclopramide HCl (Reglan) 5 mg Q6H PRN IV NAUSEA/VOMITING; Start 10/04/18 at 20:00 Acetaminophen (Tylenol Tab) 650 mg Q6H PRN PO .PAIN 1-3 OR TEMP; Start 10/04/18 at 20:00 Hydralazine HCl (Apresoline) 10 mg Q4H PRN IV ELEVATED BLOOD PRESSURE Last administered on 10/06/18at 09:29; Admin Dose 10 MG; Start 10/05/18 at 00:00 Hydromorphone HCl (Dilaudid) 1 mg Q4H PRN IV SEVERE PAIN LEVEL 7-10 Last administered on 10/07/18at 06:42; Admin Dose 1 MG; Start 10/04/18 at 23:00 Tamsulosin HCl (Flomax) 0.4 mg QHS PO Last administered on 10/06/18 21:05; Admin Dose 0.4 MG; Start 10/05/18 at 21:00 Pantoprazole (Protonix Tab) 40 mg BID@06,18 PO Last administered on 10/07/18 05:43; Admin Dose 40 MG; Start 10/05/18 at 18:00 Lorazepam (Ativan) 1 mg Q2H PRN IV seizures Last administered on 10/06/18 23:39; Admin Dose 1 MG; Start 10/06/18 at 00:00 Amlodipine Besylate (Norvasc) 10 mg DAILY PO Last administered on 10/07/18 09:10; Admin Dose 10 MG; Start 10/07/18 at 09:00 Hydralazine HCl (Apresoline) 75 mg TID PO Last administered on 10/07/18 09:08; Admin Dose 75 MG; Start 10/06/18 at 13:00 Metoprolol Tartrate (Lopressor) 25 mg DAILY PO Last administered on 10/07/18 09:12; Admin Dose 25 MG; Start 10/06/18 at 11:30 Clonidine (Catapres) 0.1 mg Q6H PRN PO SBP>160 Last administered on 10/07/18 02:16; Admin Dose 0.1 MG; Start 10/06/18 at 11:30 Levetiracetam 100 ml @ 400 mls/hr Q12 IVPB Last administered on 10/07/18 09:13; Admin Dose 400 MLS/HR; Start 10/06/18 at 21:00 SHAR LINDSEY NP Oct 07, 2018 09:56
--- NOTE | 2018-10-07 11:40 | CONS ---
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 He was noted to have a transient loss of awareness, for which neurology is consulted. Most clinically concerning for seizures. Syncope is unlikely. MRI brain is unrevealing. EEG is without epileptiform activity. P: Load with Keppra 1g x1 and cont maintenance 500mg BID for seizure ppx. Ativan IV PRN seizure > 5 min or for cluster episodes Cont other medical management per primary Will follow clinically, to recommend neurologic studies, as necessary Consultation Date/Type/Reason Admit Date/Time Oct 04, 2018 at 19:45 Type of Consult Neurology Requesting Provider: SHAR LINDSEY NP Date/Time of Note DATE: 10/07/18 TIME: 11:39 24 HR Interval Summary Free Text/Dictation Continues acute care. Pt reportedly had an aura with subsequent eye rolling overnight for which ativan was given. Exam Vital Signs Vitals Vital Signs Date Temp Pulse Resp B/P (MAP) Pulse Ox O2 O2 Flow FiO2 Time Delivery Rate 10/07/18 97.9 71 18 168/82 97 Room Air 07:55 (110) 10/05/18 3.0 16:54 Intake and Output 10/06/18 10/06/18 10/07/18 1515:00 23:00 07:00 IntakeIntake Total 1225 ml 100 ml 360 ml OutputOutput Total 1000 ml 300 ml BalanceBalance 1225 ml -900 ml 60 ml Exam PE: Gen Appearance: No Apparent Distress HEENT: Normocephalic Cardiovascular: Regular rate Abdomen: Soft Extremities: Dry NE: The patient was sedated and sparsely verbal. Able to open eyes and track. Unwilling to follow commands at this time. Cranial nerve examination was limited by mental status. Pupils were equal and reactive to light. There was no afferent pupillary defect. Funduscopic ex amination was limited. Face was grossly symmetric, w/ present corneal and cough reflexes. Tone was normal. Muscle bulk was normal. I did not see fasciculations. The patient was able to move his extremities spontaneously. Coordination and gait testing was limited by mental status. Arm and leg reflexes were within normal limits and symmetric. Rankin's sign was absent. Plantar responses were flexor. MOHINDER BELTRAN IT SERVICE DELIVERY MANAGER Oct 07, 2018 11:40
[2018-10-07] MEDS ORDERED: LEVETIRACETAM 1000 MG (PMX) 100 ML IVPB ONE (13:00)
--- NOTE | 2018-10-07 13:34 | PN ---
Date/Time of Note Date/Time of Note DATE: 10/07/18 TIME: 13:23 Assessment/Plan VTE Prophylaxis Risk score (from Nsg)>0 risk: 2 SCD applied (from Nsg): Yes Pharmacological prophylaxis: heparin Lines/Catheters IV Catheter Type (from Nrsg): Saline Lock Urinary Cath still in place: No Assessment/Plan Assessment/Plan Assessment: Melena Status post EGD 10/05/2018 -Gastritis -2 clips found in the stomach from previous endoscopy -Biopsies obtained Biopsies show superficial chronic gastritis, negative for H. pylori or metaplasia Epigastric pain Right upper quadrant pain Mild anemia New onset of seizures Hypertension Obesity BPH Plan: Continue Protonix Abdominal ultrasound Levsin 3 times daily Advance diet Patient appears adequate for outpatient management With no further recommendations GI will sign off Patient seen in collaboration with Dr. Sorenson Subjective: Patient is feeling better. He is still complaining of epigastric and right upper quadrant tenderness and some residual melena. Hemoglobin is stable. Reviewed results of EGD biopsies. We will add Carafate to the regimen in order abdominal ultrasound to rule out cholelithiasis PHYSICAL EXAMINATION: GENERAL: Well developed, obese, well nourished, alert & oriented x 3, in no acute distress SKIN: No lesions, no stigmata chronic liver disease, no evidence of bleeding diathesis LYMPHATIC: No palpable lymphadenopathy. HEAD: Normocephalic, atraumatic, no tenderness. EYES: Pupils equal reactive to light and accommodation, full extraocular movements, sclera clear, non-icteric, no discharge. EARS/NOSE AND THROAT: Ears normal, nose normal, oropharynx normal, oral membranes well hydrated without lesions. NECK: Supple, no masses, thyroid normal, JVP within normal limits, carotids normal without bruits. CHEST: Inspection within normal limits. CARDIOVASCULAR: Heart: Regular rate and rhythm, no murmurs, gallops or rubs. Peripheral pulses present within normal limits, no cyanosis, clubbing or edemas. No pulsatile abdominal mass RESPIRATORY: Lungs clear to auscultation and percussion, no wheezing, no rubs GASTROINTESTINAL AND LIVER: Abdomen: Soft, epigastric tenderness, non-distended, no hernias, no masses, no organomegaly, no ascites, no guarding, no rebound tenderness, normoactive bowel sounds. Rectal: Deferred. GENITOURINARY: Male genitalia within normal limits. EXTREMITIES: No cyanosis, clubbing or edema. Result Diagram: 10/07/18 0613 10/07/18 0613 Results 24hrs Laboratory Tests Test 10/06/18 13:36 10/07/18 06:13 White Blood Count 6.1 4.5 #L Red Blood Count 4.41 L 4.09 L Hemoglobin 11.4 L 10.5 L Hematocrit 35.1 L 32.5 L Mean Corpuscular Volume 79.6 L 79.5 L Mean Corpuscular Hemoglobin 25.9 L 25.7 L Mean Corpuscular Hemoglobin Concent 32.5 32.3 Red Cell Distribution Width 15.4 H 15.4 H Platelet Count 145 173 Mean Platelet Volume 11.3 H 10.3 Immature Granulocytes % 0.300 0.200 Neutrophils % 73.6 66.1 Lymphocytes % 15.6 20.5 Monocytes % 8.2 9.7 Eosinophils % 2.1 3.1 Basophils % 0.2 0.4 Nucleated Red Blood Cells % 0.0 0.0 Immature Granulocytes # 0.020 0.010 Neutrophils # 4.5 3.0 Lymphocytes # 1.0 0.9 Monocytes # 0.5 0.4 Eosinophils # 0.1 0.1 Basophils # 0.0 0.0 Nucleated Red Blood Cells # 0.0 0.0 Sodium Level 141 Potassium Level 3.7 Chloride Level 107 Carbon Dioxide Level 26 Anion Gap 8 Blood Urea Nitrogen 13 Creatinine 1.92 H Est Glomerular Filtrat Rate mL/min 45 L Glucose Level 94 Calcium Level 8.7 Phosphorus Level 3.7 Magnesium Level 1.9 CC: ELIU SORENSON MD ; Exam/Review of Systems Exam Vitals Vital Signs Date Temp Pulse Resp B/P (MAP) Pulse Ox O2 O2 Flow FiO2 Time Delivery Rate 10/07/18 97.9 71 18 168/82 97 Room Air 07:55 (110) 10/05/18 3.0 16:54 Intake and Output 10/06/18 10/06/18 10/07/18 1515:00 23:00 07:00 IntakeIntake Total 1225 ml 100 ml 360 ml OutputOutput Total 1000 ml 300 ml BalanceBalance 1225 ml -900 ml 60 ml Results Results 24hrs Laboratory Tests Test 10/06/18 13:36 10/07/18 06:13 White Blood Count 6.1 4.5 #L Red Blood Count 4.41 L 4.09 L Hemoglobin 11.4 L 10.5 L Hematocrit 35.1 L 32.5 L Mean Corpuscular Volume 79.6 L 79.5 L Mean Corpuscular Hemoglobin 25.9 L 25.7 L Mean Corpuscular Hemoglobin Concent 32.5 32.3 Red Cell Distribution Width 15.4 H 15.4 H Platelet Count 145 173 Mean Platelet Volume 11.3 H 10.3 Immature Granulocytes % 0.300 0.200 Neutrophils % 73.6 66.1 Lymphocytes % 15.6 20.5 Monocytes % 8.2 9.7 Eosinophils % 2.1 3.1 Basophils % 0.2 0.4 Nucleated Red Blood Cells % 0.0 0.0 Immature Granulocytes # 0.020 0.010 Neutrophils # 4.5 3.0 Lymphocytes # 1.0 0.9 Monocytes # 0.5 0.4 Eosinophils # 0.1 0.1 Basophils # 0.0 0.0 Nucleated Red Blood Cells # 0.0 0.0 Sodium Level 141 Potassium Level 3.7 Chloride Level 107 Carbon Dioxide Level 26 Anion Gap 8 Blood Urea Nitrogen 13 Creatinine 1.92 H Est Glomerular Filtrat Rate mL/min 45 L Glucose Level 94 Calcium Level 8.7 Phosphorus Level 3.7 Magnesium Level 1.9 Medications Medication Current Medications IV Flush (NS 3 ml) 3 ml PER PROTOCOL IV ; Start 10/04/18 at 20:00 Ondansetron HCl (Zofran Inj) 4 mg Q6H PRN IV NAUSEA/VOMITING; Start 10/04/18 at 20:00 Acetaminophen (Tylenol Tab) 650 mg Q6H PRN PO .PAIN 1-3 OR TEMP; Start 10/04/18 at 20:00 Hydralazine HCl (Apresoline) 10 mg Q4H PRN IV ELEVATED BLOOD PRESSURE Last administered on 10/06/18at 09:29; Admin Dose 10 MG; Start 10/05/18 at 00:00 Hydromorphone HCl (Dilaudid) 1 mg Q4H PRN IV SEVERE PAIN LEVEL 7-10 Last administered on 10/07/18at 11:23; Admin Dose 1 MG; Start 10/04/18 at 23:00 Tamsulosin HCl (Flomax) 0.4 mg QHS PO Last administered on 10/06/18at 21:05; Admin Dose 0.4 MG; Start 10/05/18 at 21:00 Pantoprazole (Protonix Tab) 40 mg BID@06,18 PO Last administered on 10/07/18 05:43; Admin Dose 40 MG; Start 10/05/18 at 18:00 Lorazepam (Ativan) 1 mg Q2H PRN IV seizures Last administered on 10/06/18 23:39; Admin Dose 1 MG; Start 10/06/18 at 00:00 Amlodipine Besylate (Norvasc) 10 mg DAILY PO Last administered on 10/07/18 09:10; Admin Dose 10 MG; Start 10/07/18 at 09:00 Hydralazine HCl (Apresoline) 75 mg TID PO Last administered on 10/07/18 09:08; Admin Dose 75 MG; Start 10/06/18 at 13:00 Clonidine (Catapres) 0.1 mg Q6H PRN PO SBP>160 Last administered on 10/07/18 02:16; Admin Dose 0.1 MG; Start 10/06/18 at 11:30 Levetiracetam 100 ml @ 400 mls/hr Q12 IVPB Last administered on 10/07/18 09:13; Admin Dose 400 MLS/HR; Start 10/06/18 at 21:00 Metoprolol Tartrate (Lopressor) 25 mg BID PO ; Start 10/07/18 at 21:00 MARLON PEREZ NP Oct 07, 2018 13:33
[2018-10-07] MEDS: SUCRALFATE (100 MG/ML) 10ML CUP PO SCH ×3 (14:00→20:53)
[2018-10-07] MEDS: HYOSCYAMINE 0.125 MG SUBL TAB PO SCH ×2 (14:00→21:00)
[2018-10-07] MEDS: TAMSULOSIN (SR) 0.4 MG CAP PO SCH (20:53)
[2018-10-07] MEDS: hydrALAzine 20 MG INJ IV PRN (22:06)
[2018-10-08] MEDS: HYDROmorphONE 1 MG/ML SYG IV PRN ×6 (00:55→23:18)
[2018-10-08 01:29] VITALS: BP 151/71; PULSE 62; RESP 18
[2018-10-08] MEDS ORDERED: HYDROmorphONE 1 MG/ML SYG IV ONE (04:00)
[2018-10-08] MEDS: PANTOPRAZOLE (EC) 40 MG TAB PO SCH ×2 (05:49→17:55)
[2018-10-08] MEDS: HYOSCYAMINE 0.125 MG SUBL TAB PO SCH ×3 (05:49→21:58)
[2018-10-08 07:34] VITALS: BP 163/77; PULSE 65; RESP 17
[2018-10-08] MEDS: AMLODIPINE 5 MG TAB PO SCH (08:07)
[2018-10-08] MEDS: SUCRALFATE (100 MG/ML) 10ML CUP PO SCH ×4 (08:08→21:22)
[2018-10-08] MEDS: METOPROLOL 25 MG TAB PO SCH ×2 (08:08→21:23)
[2018-10-08] MEDS: LEVETIRACETAM 500 MG (PMX) 100 ML IVPB SCH ×2 (08:09→21:20)
--- NOTE | 2018-10-08 12:39 | CONS ---
Assessment/Plan Assessment/Plan Assessment/Plan (Daily) 1. Nonoliguric acute injury on top of chronic kidney disease stage III with unknown baseline creatinine. Etiology of acute kidney injury is secondary to hemodynamics. Renal function has been fluctuating. We will continue to monitor, continue supportive care, renally dose all meds. Defer NETTA inhibitor or ARB at this time. 2. Chronic kidney disease, stage III, with unknown baseline creatinine. Etiology of CKD is likely due to hypertensive nephrosclerosis. The patient is currently in acute kidney injury as stated above. Continue current treatment plan. Continue disease factor modification. 3. Hypertension. Blood pressure remains elevated, but improving. Continue to adjust blood pressure regimen. 4. Anemia. Monitor hemoglobin and hematocrit levels. 5. Mineral bone disorder, monitor calcium and phosphorus levels. 6. Abdominal pain, status post EGD with noted gastritis. Continue medical management. 7. Acute gastrointestinal bleed secondary to gastritis. Continue to monitor. 8. Benign prostatic hypertrophy. Consultation Date/Type/Reason Admit Date/Time Oct 04, 2018 at 19:45 Initial Consult Date 10/05/18 Requesting Provider: SHAR LINDSEY NP Date/Time of Note DATE: 10/08/18 TIME: 12:38 24 HR Interval Summary Free Text/Dictation denies shortness of breath, n/v or urinary issues d/w rn gen nad cv rrr pulm ctab abd soft, nd, nt +bs ext: no edema Exam/Review of Systems Exam Vitals Vital Signs Date Temp Pulse Resp B/P (MAP) Pulse Ox O2 O2 Flow FiO2 Time Delivery Rate 10/08/18 98.6 65 17 163/77 97 Room Air 07:34 (105) 10/05/18 3.0 16:54 Intake and Output 10/07/18 10/07/18 10/08/18 1515:00 23:00 07:00 IntakeIntake Total 1160 ml 680 ml 240 ml OutputOutput Total 1050 ml 200 ml BalanceBalance 1160 ml -370 ml 40 ml Results Result Diagram: 10/07/18 0613 10/08/18 0448 Results 24hrs Laboratory Tests Test 10/08/18 04:30 10/08/18 04:48 Urine Color YELLOW Urine Clarity SLIGHTLY CLOUDY A Urine pH 5.0 Urine Specific Rogers 1.009 Urine Ketones NEGATIVE Urine Nitrite NEGATIVE Urine Bilirubin NEGATIVE Urine Urobilinogen NEGATIVE Urine Leukocyte Esterase NEGATIVE Urine Microscopic RBC 137 H Urine Microscopic WBC 5 Urine Bacteria FEW A Urine Yeast (Budding) FEW A Urine Hemoglobin 3+ H Urine Glucose NEGATIVE Urine Total Protein 2+ H Sodium Level 142 Potassium Level 3.8 Chloride Level 110 Carbon Dioxide Level 26 Anion Gap 6 Blood Urea Nitrogen 15 Creatinine 1.97 H Est Glomerular Filtrat Rate mL/min 43 L Glucose Level 117 Calcium Level 9.0 Phosphorus Level 4.0 Magnesium Level 1.9 Medications Medication Current Medications IV Flush (NS 3 ml) 3 ml PER PROTOCOL IV ; Start 10/04/18 at 20:00 Ondansetron HCl (Zofran Inj) 4 mg Q6H PRN IV NAUSEA/VOMITING; Start 10/04/18 at 20:00 Acetaminophen (Tylenol Tab) 650 mg Q6H PRN PO .PAIN 1-3 OR TEMP; Start 10/04/18 at 20:00 Hydralazine HCl (Apresoline) 10 mg Q4H PRN IV ELEVATED BLOOD PRESSURE Last administered on 10/07/18 22:06; Admin Dose 10 MG; Start 10/05/18 at 00:00 Hydromorphone HCl (Dilaudid) 1 mg Q4H PRN IV SEVERE PAIN LEVEL 7-10 Last administered on 10/08/18 10:17; Admin Dose 1 MG; Start 10/04/18 at 23:00 Tamsulosin HCl (Flomax) 0.4 mg QHS PO Last administered on 10/07/18 20:53; Admin Dose 0.4 MG; Start 10/05/18 at 21:00 Pantoprazole (Protonix Tab) 40 mg BID@06,18 PO Last administered on 10/08/18at 05:49; Admin Dose 40 MG; Start 10/05/18 at 18:00 Lorazepam (Ativan) 1 mg Q2H PRN IV seizures Last administered on 10/06/18 23:39; Admin Dose 1 MG; Start 10/06/18 at 00:00 Amlodipine Besylate (Norvasc) 10 mg DAILY PO Last administered on 10/08/18 08:07; Admin Dose 10 MG; Start 10/07/18 at 09:00 Hydralazine HCl (Apresoline) 75 mg TID PO Last administered on 10/08/18 08:07; Admin Dose 75 MG; Start 10/06/18 at 13:00 Clonidine (Catapres) 0.1 mg Q6H PRN PO SBP>160 Last administered on 10/07/18 02:16; Admin Dose 0.1 MG; Start 10/06/18 at 11:30 Levetiracetam 100 ml @ 400 mls/hr Q12 IVPB Last administered on 10/08/18 08:09; Admin Dose 400 MLS/HR; Start 10/06/18 at 21:00 Metoprolol Tartrate (Lopressor) 25 mg BID PO Last administered on 10/08/18 08:08; Admin Dose 25 MG; Start 10/07/18 at 21:00 Sucralfate (Carafate Susp) 1 gm QID PO Last administered on 10/08/18 08:08; Admin Dose 1 GM; Start 10/07/18 at 14:00 Hyoscyamine (Levsin (Sl)) 0.125 mg Q8 PO Last administered on 10/08/18 05:49; Admin Dose 0.125 MG; Start 10/07/18 at 14:00 THO BUSTAMANTE MD Oct 08, 2018 12:39
--- NOTE | 2018-10-08 12:44 | PN ---
Date/Time of Note Date/Time of Note DATE: 10/08/18 TIME: 12:39 Assessment/Plan VTE Prophylaxis Risk score (from Ns)>0 risk: 2 SCD applied (from [facility] [place]): No SCD contraindicated: low risk/ambulating Pharmacological prophylaxis: NA/contraindicated Pharm contraindication: low risk/ambulating, bleeding Lines/Catheters IV Catheter Type [facility]from [facility] Saline Lock Urinary Cath still in place: No Assessment/Plan Problems: (1) Upper GI bleed Status: Acute Comment: He apparently had a prior GI bleed that was clipped. At this time he is relatively stable going to follow him along. Repeat CBC in a.m. 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 At this time he is now on Keppra. (4) Benign prostatic hyperplasia Status: Chronic Comment: Check postvoid residual Qualifiers: Lower urinary tract symptom presence: symptoms present Lower urinary tract symptom detail: urinary frequency Qualified Codes: N40.1 - Benign prostatic hyperplasia with lower urinary tract symptoms; R35.0 - Frequency of micturition (5) History of transurethral resection of prostate Onset Date: ~ 09/2014 Status: Chronic Comment: Noted. Check postvoid residual (6) Acute kidney injury superimposed on chronic kidney disease Status: Chronic Comment: Check postvoid residual (7) Hypertension Status: Chronic Comment: If he does have postvoid residual and replace the tamsulosin over with an alpha shyann and also lower his blood pressure. Qualifiers: Hypertension type: essential hypertension Qualified Codes: I10 - Essential (primary) hypertension (8) Chronic ethmoidal sinusitis Status: Chronic Comment: Noted. Result Diagram: 10/07/18 0613 10/08/18 0448 Results 24hrs Laboratory Tests Test 10/08/18 04:30 10/08/18 04:48 Urine Color YELLOW Urine Clarity SLIGHTLY CLOUDY A Urine pH 5.0 Urine Specific [place] 1.009 Urine Ketones NEGATIVE Urine Nitrite NEGATIVE Urine Bilirubin NEGATIVE Urine Urobilinogen NEGATIVE Urine Leukocyte Esterase NEGATIVE Urine Microscopic RBC 137 H Urine Microscopic WBC 5 Urine Bacteria FEW A Urine Yeast (Budding) FEW A Urine Hemoglobin 3+ H Urine Glucose NEGATIVE Urine Total Protein 2+ H Sodium Level 142 Potassium Level 3.8 Chloride Level 110 Carbon Dioxide Level 26 Anion Gap 6 Blood Urea Nitrogen 15 Creatinine 1.97 H Est Glomerular Filtrat Rate mL/min 43 L Glucose Level 117 Calcium Level 9.0 Phosphorus Level 4.0 Magnesium Level 1.9 Subjective 24 Hr Interval Summary Free Text/Dictation Patient reports he is feeling relatively well. He informs me that he had a prior history of seizures which he stated were left temporal lobe seizures. He has been off medications for a prolonged period of time having previously been treated with Tegretol, phenobarbital etc. Constitutional: no complaints Respiratory: no complaints Cardiovascular: no complaints Gastrointestinal: no complaints Genitourinary: no complaints Musculoskeletal: no complaints Exam/Review of Systems Exam Vitals Vital Signs Date Temp Pulse Resp B/P (MAP) Pulse Ox O2 O2 Flow FiO2 Time Delivery Rate 10/08/18 98.6 65 17 163/77 97 Room Air 07:34 (105) 10/05/18 3.0 16:54 Intake and Output 10/07/18 10/07/18 10/08/18 1515:00 23:00 07:00 IntakeIntake Total 1160 ml 680 ml 240 ml OutputOutput Total 1050 ml 200 ml BalanceBalance 1160 ml -370 ml 40 ml Constitutional: alert, oriented Neck: supple, non-tender Respiratory: clear to auscultation, normal air movement Cardiovascular: regular rate and rhythm, nl pulses Results Results 24hrs Laboratory Tests Test 10/08/18 04:30 10/08/18 04:48 Urine Color YELLOW Urine Clarity SLIGHTLY CLOUDY A Urine pH 5.0 Urine Specific [place] 1.009 Urine Ketones NEGATIVE Urine Nitrite NEGATIVE Urine Bilirubin NEGATIVE Urine Urobilinogen NEGATIVE Urine Leukocyte Esterase NEGATIVE Urine Microscopic RBC 137 H Urine Microscopic WBC 5 Urine Bacteria FEW A Urine Yeast (Budding) FEW A Urine Hemoglobin 3+ H Urine Glucose NEGATIVE Urine Total Protein 2+ H Sodium Level 142 Potassium Level 3.8 Chloride Level 110 Carbon Dioxide Level 26 Anion Gap 6 Blood Urea Nitrogen 15 Creatinine 1.97 H Est Glomerular Filtrat Rate mL/min 43 L Glucose Level 117 Calcium Level 9.0 Phosphorus Level 4.0 Magnesium Level 1.9 Medications Medication Current Medications IV Flush (NS 3 ml) 3 ml PER PROTOCOL IV ; Start 10/04/18 at 20:00 Ondansetron HCl (Zofran Inj) 4 mg Q6H PRN IV NAUSEA/VOMITING; Start 10/04/18 at 20:00 Acetaminophen (Tylenol Tab) 650 mg Q6H PRN PO .PAIN 1-3 OR TEMP; Start 10/04/18 at 20:00 Hydralazine HCl (Apresoline) 10 mg Q4H PRN IV ELEVATED BLOOD PRESSURE Last administered on 10/07/18 22:06; Admin Dose 10 MG; Start 10/05/18 at 00:00 Hydromorphone HCl (Dilaudid) 1 mg Q4H PRN IV SEVERE PAIN LEVEL 7-10 Last administered on 10/08/18 10:17; Admin Dose 1 MG; Start 10/04/18 at 23:00 Tamsulosin HCl (Flomax) 0.4 mg QHS PO Last administered on 10/07/18 20:53; Admin Dose 0.4 MG; Start 10/05/18 at 21:00 Pantoprazole (Protonix Tab) 40 mg BID@06,18 PO Last administered on 10/08/18 05:49; Admin Dose 40 MG; Start 10/05/18 at 18:00 Lorazepam (Ativan) 1 mg Q2H PRN IV seizures Last administered on 10/06/18 23:39; Admin Dose 1 MG; Start 10/06/18 at 00:00 Amlodipine Besylate (Norvasc) 10 mg DAILY PO Last administered on 10/08/18 08:07; Admin Dose 10 MG; Start 10/07/18 at 09:00 Hydralazine HCl (Apresoline) 75 mg TID PO Last administered on 10/08/18 08:07; Admin Dose 75 MG; Start 10/06/18 at 13:00 Clonidine (Catapres) 0.1 mg Q6H PRN PO SBP>160 Last administered on 10/07/18 02:16; Admin Dose 0.1 MG; Start 10/06/18 at 11:30 Levetiracetam 100 ml @ 400 mls/hr Q12 IVPB Last administered on 10/08/18 08:09; Admin Dose 400 MLS/HR; Start 10/06/18 at 21:00 Metoprolol Tartrate (Lopressor) 25 mg BID PO Last administered on 10/08/18 08:08; Admin Dose 25 MG; Start 10/07/18 at 21:00 Sucralfate (Carafate Susp) 1 gm QID PO Last administered on 10/08/18 08:08; Admin Dose 1 GM; Start 10/07/18 at 14:00 Hyoscyamine (Levsin (Sl)) 0.125 mg Q8 PO Last administered on 10/08/18 05:49; Admin Dose 0.125 MG; Start 10/07/18 at 14:00 PAMELA PENA MD Oct 08, 2018 12:44
[2018-10-08 14:07] VITALS: BP 167/88; PULSE 67; RESP 17
[2018-10-08 20:12] VITALS: BP 168/93; PULSE 65; RESP 19
[2018-10-08 21:22] VITALS: BP 156/74
[2018-10-08] MEDS: TAMSULOSIN (SR) 0.4 MG CAP PO SCH (21:22)
[2018-10-09 01:50] VITALS: BP 159/83; PULSE 55; RESP 16
[2018-10-09] MEDS: PANTOPRAZOLE (EC) 40 MG TAB PO SCH (05:31)
[2018-10-09] MEDS: HYOSCYAMINE 0.125 MG SUBL TAB PO SCH (05:32)
[2018-10-09] MEDS: HYDROmorphONE 1 MG/ML SYG IV PRN (05:39)
[2018-10-09 07:44] VITALS: BP 156/89; PULSE 64; RESP 17
[2018-10-09] MEDS: SUCRALFATE (100 MG/ML) 10ML CUP PO SCH (08:08)
[2018-10-09] MEDS: METOPROLOL 25 MG TAB PO SCH (08:08)
[2018-10-09] MEDS: LEVETIRACETAM 500 MG (PMX) 100 ML IVPB SCH (08:08)
[2018-10-09] MEDS: AMLODIPINE 5 MG TAB PO SCH (08:09)
--- NOTE | 2018-10-09 08:57 | DS ---
Date/Time of Note Date/Time of Note DATE: 10/09/18 TIME: 08:49 Discharge Summary Admission/Discharge Info Admit Date/Time Oct 04, 2018 at 19:45 Discharge Date/Time October 09 2018 Discharge Diagnosis Upper GI bleed secondary to gastritis; seizure disorder; chronic kidney disease stage III; benign prostatic hypertrophy with urinary retention; essential hypertension; fatty liver; hematuria; chronic ethmoid sinusitis; obesity; Patient Condition: Good Consults Neurology-; gastroenterology-Dr. Sorenson; nephrology-Dr. Alcazar Procedures EGD; EEG; IMPRESSION: Normal electroencephalogram during wakefulness and drowsiness. Abdominal ultrasound; MRI scan brain; renal ultrasound; CT scan brain Hx of Present Illness Hx of Present Illness Chief complaint: Epigastric pain, dark stools This is a 53-year-old male who is here for epigastric burning pain over the past 3 days. He says that today he started having black diarrhea so I called his primary care who told him to go to the ER. The patient denies any history of ulcer disease, gastritis or esophagitis. His gallbladder is removed. The pain does not radiate but stays mostly in the upper abdomen. He reports that he has had approximately 5 dark bowel today. He denies any chest pain or shortness of breath. Reason for Consultation This is a 53-year-old male with a history of hypertension and BPH who was admitted for melena and epigastric pain. Patient states he has epigastric pain and nausea started 4 days ago. He denies use of NSAIDs or aspirin, denies drinking alcohol, smoking or use of illicit drugs. Patient denies any history of EGD or peptic ulcer disease. Patient had a colonoscopy 1 year agonormal exam. Patient reports having diarrhea yesterday with melena. Currently patient denies vomiting, hematemesis, hematochezia, constipation or fever. Hemoglobin is stable. Patient was started on Protonix drip. The plan is to perform an EGD today to rule out peptic ulcers. Risks and benefits of the procedure have been discussed with the patient. Patient is agreeable to the procedure. HISTORY OF PRESENT ILLNESS: This is a 53-year-old male with a past medical history of chronic kidney disease stage III with unknown baseline creatinine, a history of hypertension, history of BPH, who presents to [facility] with midepigastric burning pain over the past 3 days. The patient stated he started to have black stools. He called his primary care physician and was told to come to the emergency room. The patient, upon arrival, was started on Protonix drip and was admitted to med/surg for evaluation. In terms of patient's renal history, the patient has underlying history of chronic kidney disease. He has not seen a vice president of software development, but he has been told that he has underlying disease. The patient does have renal biopsy. He does not know what his baseline creatinine is. He denies any hemoptysis or hematemesis. The patient is noted to have dark stools as stated above. Hospital Course Pleasant 53-year-old -[place] male. He came in with GI bleeding which was stabilized. EGD demonstrated 2 prior gastric clips present from prior event. As he was not bleeding his hemoglobin hematocrit remained stable he was observed. Please note he does report a history of a prior left temporal lobe seizure disorder. Possibility exists that he had a seizure here although his EEG was fortunately unremarkable. Regardless he has been placed back on anti- epilepsy medications by neurology consult. In addition he has hypertension that is moderately elevated. Since he does have benign prostatic hypertrophy despite a prior TURP with evidence of post void residual of 64 cc to consideration to rotate his tamsulosin over to an alpha shyann. This will be done as an outpatient. Home Meds Reported Medications Lisinopril* (Lisinopril*) 40 Mg Tablet, 40 MG PO DAILY, #30 TAB 10/04/18 Tamsulosin Hcl* (Flomax*) 0.4 Mg Cap.er.24h, 0.4 MG PO DAILY, CAP 10/04/18 Hydralazine Hcl* (Hydralazine Hcl*) 50 Mg Tab, 50 MG PO TID, #90 TAB 10/04/18 Follow-up Plan Primary care physician within 2 weeks; neurology within 2 weeks Primary Care Provider Not On Staff Doctor Time spent on discharge: > 30 minutes Pending Labs Laboratory Tests Test 10/09/18 05:03 White Blood Count 4.8 10^3/ul (4.8-10.8) Red Blood Count 4.12 10^6/ul (4.70-6.10) Hemoglobin 10.6 g/dl (14.0-18.0) Hematocrit 33.1 % (42.0-52.0) Mean Corpuscular Volume 80.3 fl (82.0-101.0) Mean Corpuscular Hemoglobin 25.7 pg (29.0-33.0) Mean Corpuscular Hemoglobin Concent 32.0 g/dl (32.0-37.0) Red Cell Distribution Width 15.1 % (11.5-14.5) Platelet Count 165 10^3/UL (140-415) Mean Platelet Volume 10.8 fl (7.4-10.4) Immature Granulocytes % 0.400 % (0.001-0.429) Neutrophils % 68.5 % (39.0-77.0) Lymphocytes % 16.8 % (15.0-51.0) Monocytes % 10.4 % (0.0-11.0) Eosinophils % 3.7 % (0.0-7.0) Basophils % 0.2 % (0.0-2.0) Nucleated Red Blood Cells % 0.0 /100WBC (0.0-0.0) Immature Granulocytes # 0.020 10^3/ul (0.0-0.031) Neutrophils # 3.3 10^3/ul (1.6-7.5) Lymphocytes # 0.8 10^3/ul (0.8-2.9) Monocytes # 0.5 10^3/ul (0.3-0.9) Eosinophils # 0.2 10^3/ul (0.0-0.5) Basophils # 0.0 10^3/ul (0.0-0.1) Nucleated Red Blood Cells # 0.0 10^3/ul (0.0-0.0) Sodium Level 143 mmol/L (135-144) Potassium Level 3.9 mmol/L (3.5-5.1) Chloride Level 111 mmol/L (97-110) Carbon Dioxide Level 27 mmol/L (21-31) Anion Gap 5 (5-13) Blood Urea Nitrogen 16 mg/dl (7-20) Creatinine 2.08 mg/dl (0.61-1.24) Est Glomerular Filtrat Rate mL/min 41 mL/min (>60) Glucose Level 83 mg/dl (70-220) Calcium Level 9.0 mg/dl (8.4-10.2) Magnesium Level 2.0 mg/dl (1.7-2.5) Total Bilirubin 0.1 mg/dl (0.2-1.3) Direct Bilirubin 0.00 mg/dl (0.00-0.20) Indirect Bilirubin 0.1 mg/dl (0-1.1) Aspartate Amino Transf (AST/SGOT) 21 IU/L (15-46) Alanine Aminotransferase (ALT/SGPT) 23 IU/L (13-69) Alkaline Phosphatase 90 IU/L (42-121) Total Protein 6.4 g/dl (6.1-8.1) Albumin 3.0 g/dl (3.3-4.9) Globulin 3.40 g/dl (1.3-3.2) Albumin/Globulin Ratio 0.88 PAMELA PENA MD Oct 09, 2018 08:57
--- NOTE | 2018-10-09 08:58 | PDOCDIS ---
Discharge Instructions DIAGNOSIS Discharge Diagnosis Upper GI bleed secondary to gastritis; seizure disorder; chronic kidney disease stage III; benign prostatic hypertrophy with urinary retention; essential hyper tension; fatty liver; hematuria; chronic ethmoid sinusitis; obesity; CONDITION [id number] Patient Condition: [id number] Fair HOME CARE INSTRUCTIONS: [id number] Diet Instructions: [id number] Reduced Calorie ACTIVITY: [id number] Activity Restrictions: [id number] Do not Drive (Until cleared by neurology) FOLLOW UP/APPOINTMENTS Follow-up Plan Primary care physician within 2 weeks; neurology within 2 weeks PAMELA PENA MD Oct 09, 2018 08:58
--- NOTE | 2018-10-09 08:58 | PDOCDIS ---
Discharge Instructions DIAGNOSIS Discharge Diagnosis Upper GI bleed secondary to gastritis; seizure disorder; chronic kidney disease stage III; benign prostatic hypertrophy with urinary retention; essential hyper tension; fatty liver; hematuria; chronic ethmoid sinusitis; obesity; CONDITION [id number] Patient Condition: [id number] Fair HOME CARE INSTRUCTIONS: [id number] Diet Instructions: [id number] Reduced Calorie ACTIVITY: [id number] Activity Restrictions: [id number] No Restrictions FOLLOW UP/APPOINTMENTS Follow-up Plan Primary care physician within 2 weeks; neurology within 2 weeks PAMELA PENA MD Oct 09, 2018 08:57
[2018-10-09] MEDS ORDERED: CARAS PO (09:01)
[2018-10-09] MEDS ORDERED: PANT40TA4 PO (09:01)
[2018-10-09] MEDS ORDERED: LEVE-5 PO (09:01)
[2018-10-09] MEDS ORDERED: AMLO-145 PO (09:01)
== END 2018-10-09 11:27 | disposition home or self-care (01) | DRG 378 ==
LOC: E/R 14:55 → 2NE 19:45 → CANRESERV 20:34
PROVIDERS: ADMIT Family Medicine; ATTEND Family Medicine
PROC: 0DB68ZX Excision of Stomach, Via Natural or Artificial Opening Endoscopic, Diagnostic (ICD-10-PCS; principal; 2018-10-05 18:30)
DX: K29.71 Gastritis, unspecified, with bleeding (principal); N17.9 Acute kidney failure, unspecified; I16.0 Hypertensive urgency; I12.9 Hypertensive chronic kidney disease with stage 1 through stage 4 chronic kidney disease, or unspecified chronic kidney disease; N18.3 Chronic kidney disease, stage 3 (moderate); E66.9 Obesity, unspecified; Z68.38 Body mass index [BMI] 38.0-38.9, adult; D64.9 Anemia, unspecified; R40.4 Transient alteration of awareness; F91.9 Conduct disorder, unspecified; G40.909 Epilepsy, unspecified, not intractable, without status epilepticus; R10.13 Epigastric pain; N40.0 Benign prostatic hyperplasia without lower urinary tract symptoms
CPT/HCPCS: 36415; 70450; 70551; 71045; 76705; 76775; 80048; 80053; 80061; 80307; 81001; 81003; 82043; 82728; 82962; 83036; 83540; 83735; 84100; 84155; 84300; 84443; 85025; 85610; 85730; 86850; 86900; 86901; 87086; 88305; 88312; 93005; 95819; 96365; 96366; 96375; 96376; C9113; J0360; J1170; J1953; J2060; J2270; J2405; J7030